=== PATIENT | male | born 1965 | race Caucasian/White ===

== ENCOUNTER 2016-10-29 09:08 | Emergency (ER) | payer OTHER ==
[~2016-10-29] VITALS: Ht 182.9 cm; Wt 102.0 kg
[~2016-10-29 09:08] MED LIST: ASPI81CH7 CHEW; CYCL1TAB29 PO; ESLI1TAB4 PO; IBUP-232 PO; MEDR4PAK PO; METO50TA PO
[2016-10-29 09:10] VITALS: BP 156/104; PULSE 71; RESP 13; TEMP 98.4; O2SAT 95
[2016-10-29] MEDS ORDERED: ONDANSETRON HCL 4 MG/2 ML VIAL IVP ONE (09:45)
[2016-10-29] MEDS ORDERED: HYDROmorphone HCL PF 2 MG/ML VIAL IVS ONE (09:45)
[2016-10-29] MEDS ORDERED: KETOROLAC TROMETHAMINE 30 MG/ML (IVP) VIAL IVP ONE (09:45)
--- NOTE | 2016-10-29 10:16 | PD ---
HPI . Sciatica Chief Complaint: Back/ Neck Pain or Injury Time Seen by Provider: 09:31 Travel History International Travel<30 days: No Contact w/Intl Traveler<30days: No Traveled to known affect area: No History of Present Illness HPI Patient presents with a chief complaint of sciatica. He had the acute onset of symptoms on 10/24 following a coughing spell. This pain radiates to the left leg. He was seen at [facility] and was treated in the emergency Department there with Decadron, Percocet and Valium improvement in his symptoms. He was discharged on Motrin, Flexeril, Valium and a Medrol Dosepak. He has been taking those as directed. Despite that, his symptoms are getting worse rather than better. He complains of left leg weakness, numbness and pain. Pain is exacerbated by movement. He states that he been able to get some relief with positioning with pillows but he is no longer able to get relief with this. He states that his symptoms are "really bad." He describes the pain as sharp and shooting. PFSH Past Medical History Atrial Fibrillation: Yes (atrial flutter per pt) Heart Rhythm Problems: Yes (ARRYTHMIAS) Cardiovascular Problems: No (aflutter) Cerebrovascular Accident: No (epilepsy) Diminished Hearing: No GERD: Yes Migraines: Yes Seizures: Yes (epilepsy ) Tetanus Vaccination: Unknown Influenza Vaccination: No Past Surgical History Tonsillectomy: Yes Social History Alcohol Use: No Tobacco Use: Yes Substance Use: No Allergies-Medications (Allergen,Severity, Reaction): Coded Allergies: Demerol (Verified Allergy, Severe, 10/29/16) Reported Meds & Prescriptions Reported Meds & Active Scripts Active Medrol Dosepak (Methylprednisolone) 4 Mg Dspk 4 Mg PO DIRECTED Per Pharmacist direction Ibuprofen 600 Mg Tab 600 Mg PO Q8H PRN Flexeril (Cyclobenzaprine HCl) 10 Mg Tab 10 Mg PO TID Reported Aptiom (Eslicarbazepine) 800 Mg Tab 800 Mg PO DAILY Aspirin Children's (Aspirin) 81 Mg Chew 81 Mg CHEW DAILY Metoprolol Tartrate 50 Mg Tab 50 Mg PO BID Review of Systems Except as stated in HPI: all other systems reviewed are Neg General / Constitutional: No: Fever, Chills Genitourinary: No: Incontinence Musculoskeletal: Positive: Pain (back and left leg) Neurologic: Positive: Weakness, Paresthesia, No: Incontinence Physical Exam Narrative GENERAL: Awake and alert. SKIN: Warm and dry. HEAD: Atraumatic. Normocephalic. EYES: Pupils equal and round. Extraocular movements are intact. NECK: Neck is supple. CARDIOVASCULAR: Regular rate and rhythm. RESPIRATORY: No accessory muscle use. MUSCULOSKELETAL: Tender at the left SI joint. Straight leg raise on the left is positive at about 10. He is unable to hold his left leg up off the bed for more than about a second. He does have positive reflexes in his left lower extremity. I was unable to get him to relax his right leg for comparison reflexes. NEUROLOGICAL: Awake and alert. No obvious cranial nerve deficits. Motor grossly within normal limits. Normal speech. PSYCHIATRIC: Appropriate mood and affect; insight and judgment normal. Data Data Last Documented VS Vital Signs Date Time Temp Pulse Resp B/P Pulse Ox O2 Delivery O2 Flow Rate FiO2 10/29/16 09:26 15 10/29/16 09:10 98.4 71 156/104 95 Orders Mri L Spine W/O Contrast (10/29/16 09:31) Hydromorphone Pf Inj (Dilaudid Pf Inj) (10/29/16 09:45) Ketorolac Inj (Toradol Inj) (10/29/16 09:45) Ondansetron Inj (Zofran Inj) (10/29/16 09:45) MDM Medical Decision Making Medical Screen Exam Complete: Yes Emergency Medical Condition: Yes Medical Record Reviewed: Yes (patient was seen and ON 10/24. HE WAS TREATED FOR SCIATICA WITH DECADRON, PERCOCET AND VALIUM IN THE ED. HE WAS DISCHARGED ON MOTRIN, FLEXERIL AND A MEDROL DOSEPAK AND WAS INSTRUCTED TO HAVE AN OUTPATIENT MRI.) Differential Diagnosis Differential diagnosis of leg pain includes but is not limited to lumbar radiculopathy, arthritis, myalgias, DVT. Narrative Course Patient presents for evaluation of sciatica involving the left lower extremity. He reports that his symptoms have rapidly worsened over the course of about 5 days despite appropriate treatment. While awaiting MRI, his pain is being treated with Dilaudid and Toradol. He has been given prophylactic Zofran. He is already on steroids so steroids have not been ordered. MRI: 1. L2-3 there is a large annular tear with a large extruded disc extending inferiorly and centrally resulting in moderate thecal sac stenosis. 2. At L3-4 there is a 13 mm extruded disc fragment in the left lateral recess resulting in severe left lateral recess stenosis. 3. At L3-4 there is also an additional 8 mm diameter disc extrusion extending inferiorly resulting in moderate to severe left lateral recess stenosis. 4. At L4-5 is a broad-based disc protrusion worse on the right side with moderate right foraminal stenosis. 5. At L5-S1 is a broad-based disc protrusion, worse on the right side with mild right foraminal stenosis. This patient will be referred to neurosurgery. Diagnosis Primary Impression: Sciatica of left side Referrals: Joel Tolliver MD Call today for an appointment as soon as possible. Explained to the unit receptionist that she had been seen here. Patient Instructions: Degenerative Disc Disease (DC), General Instructions, Narcotic given in the ED Med/Other Pt SpecificInfo: Prescription(s) given Scripts Oxycodone-Acetaminophen (Percocet)5-325 mg Tab1 Tab PO Q4H PRN (PAIN) #12 TAB Ref 0 Prov:Elle Nielsen MD 10/29/16 Prednisone 20 Mg Tab60 Mg PO DAILY 5 Days Ref 0 Prov:Elle Nielsen MD 10/29/16 Disposition: 01 DISCHARGE HOME Condition: Stable Elle Nielsen MD Oct 29, 2016 10:16
--- NOTE | 2016-10-29 11:47 | RADRPT ---
EXAM DATE/TIME: 10/29/2016 11:02 [facility] COMPARISON: No previous studies available for comparison. INDICATIONS : Lower back pain radiating down left leg. MEDICAL HISTORY : Gastroesophageal reflux disease. Osteoarthritis. Epilepsy SURGICAL HISTORY : Tonsillectomy. Inguinal hernia repair. Rt rotator cuff, lt hand ENCOUNTER: Initial ACUITY: 4-6 days PAIN SCORE: 6/10 LOCATION: Left leg TECHNIQUE: Multiplanar multisequence MRI of the lumbar spine was performed without contrast. FINDINGS: No significant abnormality present at [id number]. L2-3 there is a large central annular tear with a large disc protrusion and extrusion. The extruded d isc material from L2-3 extends inferiorly over a distance of about 2.3 cm in AP diameter of about 9 m m resulting in a moderate thecal sac stenosis. At L3-4 there is an extruded disc fragment on the left side measuring up to 13 mm in diameter severel y effacing the left lateral recess and left neural foramen. There is also a disc extrusion below the L3-4 level extending inferiorly measuring about 8 mm in diameter left paracentral region also contrib uting to severe left lateral recess stenosis. At L4-L5 is a broad-based disc protrusion, worse on the right side with mild to moderate right forami nal stenosis. At L5-S1 there is also a mild broad-based disc protrusion also worse on the right side with mild righ t-sided foraminal stenosis. CONCLUSION: 1. L2-3 there is a large annular tear with a large extruded disc extending inferiorly and centrally r esulting in moderate thecal sac stenosis. 2. At L3-4 there is a 13 mm extruded disc fragment in the left lateral recess resulting in severe lef t lateral recess stenosis. 3. At L3-4 there is also an additional 8 mm diameter disc extrusion extending inferiorly resulting in moderate to severe left lateral recess stenosis. 4. At L4-5 is a broad-based disc protrusion worse on the right side with moderate right foraminal jane nosis. 5. At L5-S1 is a broad-based disc protrusion, worse on the right side with mild right foraminal steno sis. Abbe Vences MD on October 29, 2016 at 11:36 Board Certified Radiologist. This report was verified electronically.
[2016-10-29] MEDS ORDERED: PRED20 PO (12:01)
[2016-10-29] MEDS ORDERED: PERC5TAB12 PO (12:01)
[2016-10-29 12:06] VITALS: BP 145/86
== END 2016-10-29 12:17 | disposition home or self-care (01) ==
LOC: NEPD 09:08
DX: M54.42 Lumbago with sciatica, left side (principal); R53.1 Weakness; R20.0 Anesthesia of skin; M48.07 Spinal stenosis, lumbosacral region; I48.91 Unspecified atrial fibrillation; G40.909 Epilepsy, unspecified, not intractable, without status epilepticus; Z72.0 Tobacco use
CPT/HCPCS: 72148; 96374; 96375; 99285; J1170; J1885; J2405

== ENCOUNTER → 2016-12-01 | Day surgery (SDC) | payer OTHER ==
[~2016-12-01] VITALS: Ht 182.9 cm; Wt 102.1 kg
[~2016-12-01] MED LIST changes: +*RESP: ALBUTEROL 2.5 MG/3 ML NEB (PRN) PERIprocedural Use ONLY NEB ONE; +*morphine SULFATE 8 MG/ML PERIprocedure ONLY ONE; +ACETAMINOPHEN 1000 MG/100 ML VIAL IV ONE; +ARTIFICIAL TEARS OPTH OINT 3.5 APPLIC/3.5 GM TUBO ONE; -ASPI81CH7 CHEW; +ASPI81TA11 PO; +BUPIVACAINE HCL PF 0.5% 30 ML VIAL ONE; +CHLORHEXIDINE GLUCONATE 2 % 1 PACK (2 CLOTHS) TOPICAL PRN; +DO NOT ADM ANY ANTICOAGULANT DRUGS PRN; +FAMOTIDINE 20 MG/2 ML VIAL ONE; +GELFOAM SIZE 100 ONE; +GENTAMICIN SULFATE 80 MG/2 ML VIAL ONE; +INSULIN HUMAN REGULAR 1,000 UNITS/10 ML VIAL SQ PRN; +LACTATED RINGER'S 1000 ML INJ 1,000 ML IV ONE; +LACTATED RINGER'S 1000 ML IV PRN; -MEDR4PAK PO; +METOPROLOL TARTRATE 25 MG TAB PO PRN; +MIDAZOLAM HCL 2 MG/2 ML VIAL ONE; +NEOSTIGMINE 3 MG/3 ML SYR IV ONE; +OMEP40CA2 PO; +ONDANSETRON HCL 4 MG/2 ML VIAL IV PUSH ONE; +PERC5TAB12 PO; +POVIDONE IODINE 5% (ANTISEPSIS KIT) 4 APPLICATIONS EACH NARE PRN; +PROPOFOL 200 MG/20 ML AMP IV ONE; +SODIUM CHLOR 0.9% 1000 ML INJ 1,000 ML IV SCH; +SODIUM CHLORID 0.9% 500 ML IV PRN; +THROMBIN (TOPICAL) 5,000 UNIT VIAL ONE; +VANCOMYCIN HCL 1000 MG ON-CALL/NS 250 ML IV SCH; +ceFAZolin 2 GM PREMIX 50 ML ONE; +diphenhydrAMINE HCL 50 MG/ML VIAL ONE; +ePHEDrine/NS 25 MG/5 ML SYR IV ONE; +fentaNYL CITRATE 250 MCG/5 ML AMP ONE; +methylPREDNISolone ACETATE 40 MG/ML VIAL ONE; +oxyCODONE/ACETAMINOPHEN 10 MG/325 MG TAB PO PRN
[2016-12-01 07:34] VITALS: BP 139/90; PULSE 71; RESP 20; TEMP 98; O2SAT 96
--- NOTE | 2016-12-01 11:46 | PD.OP ---
Operative Report Date of Surgery: Dec 01, 2016 Preoperative Diagnosis: Lumbar disk herniation Postoperative Diagnosis: Lumbar disk herniation Procedure: L2-L3, L3-L4 left hemilaminectomy and microdiscectomy Anesthesia: general Surgeon: Joel Tolliver Senior Net Engineer(s): Bobbi See Operation and Findings: INDICATIONS FOR THE SURGICAL PROCEDURE The patient is a 51 year-old male who presented with intractable back pain and clinical evidence of left L3 and L4 lower extremity radiculopathy. He was found to have a disk herniation/extrusion significant stenosis with significant mass effect on the neural structures which correlated with the clinical symptoms. The patient has failed maximum nonsurgical management including multiple modalities of conservative treatment as well as pain management interventions by an interventional pain specialist. A surgical decompression were indicated as a last resort. The [id number]-syut details of the procedure, indications, alternatives, risks and potential complications were fully discussed with the patient. The patient fully understood. All the questions were answered. No guarantees were given. The patient voiced requesting the procedure and signed informed consents. The patient was offered the alternative of delaying the procedure and continuing with nonsurgical management. DETAILS OF THE SURGICAL PROCEDURE After the induction of general anesthesia, endotracheal intubation was performed. A Ha catheter, bilateral CURTIS hose and sequential compression devices were placed and kept throughout the procedure. The patient was positioned prone on a Brian table over a Wellington frame. All pressure points were carefully padded with eggcrate mattress. The eyes were tapped shut after ointment was applied by the anesthesiologist to prevent corneal abrasion. A Beverly hugger was placed over the exposed lower body to maintain control of the core body temperature. The lower lumbar region was prepped and draped in the usual sterile fashion. A spinal needle was placed for localization and an x- ray performed with a C-arm. A skin incision was made in the midline over the spinous processes L2-L4 with a #10 blade. Small subcutaneous bleeders were controlled with a bipolar and the dissection was carried out through the lumbar fascia exposing the spinous processes. A subperiosteal dissection was performed with a Patton elevator and a Bovie over the L2, L3, L4 spinous process lamina and facets. A microdiscectomy self-retaining retractor was placed on the incision and an x-ray was obtained with an instrument placed underneath the lamina of L2. At this point in the procedure the operating microscope was draped in the usual sterile fashion and brought to the field. The rest of the surgical procedure was performed using microsurgical dissection technique with exception of the closure. Once the level was confirmed, a left decompressive laminectomy was performed at L2-3, and L3-L4 using the TPS drill with an AM-8 drill bit. A medial facetectomy was performed and the superior free border of the ligamentum flavum was dissected with a ligament dissector and removed with a thin footplate 2 mm Kerrison The medial facetectomy allowed me to expose the L3 and L4 nerve roots, which were identified and followed towards its exit in the foramen. Epidural veins located laterally to the dural sac were coagulated with a bipolar and incised with microscissors. Gentle medial retraction of the dural sac allowed inspection of the disc space. The patient had a disc herniation and extrtusion, causing mass effect over the neural structures The annulus fibrosus of the disc was coagulated with the bipolar and incised with an 11 blade. The extruded disc was carefully dissected from the surrounding tissue and removed with pituitary forceps. Then, a microdiscectomy was carried out in the standard fashion using straight and up-biting pituitary forceps. A good decompression of the dural sac and nerve root was achieved. The exit of the nerve root was inspected for residual disc fragments. Hemostasis was secured with the bipolar. The incision was irrigated with a large amount of saline solution. A Valsalva maneuver failed to show any cerebrospinal fluid leak or bleeding. The decompression was assessed again and found to be satisfactory. The incision was then closed in layers. The fascia was closed with 0 Vicryl sutures in an interrupted fashion. The superficial fascia was closed with 0 Vicryl sutures. The fascia was infiltrated with 0.5% Marcaine with epinephrine 1:100,000 dilution. The subcutaneous tissue was irrigated then closed with 0 Vicryl and 3 -0 Vicryl. The skin was closed with 4-0 running subcuticular Vicryl. Dermabond was applied to the skin. A sterile dressing was applied. At the end of the procedure, the sponge, needle and instrument counts were all correct. Estimated blood loss was less than 60 cc. No blood transfusion was given. No intraoperative complications occurred. The patient received prophylactic antibiotics. The patient was then extubated and transferred to the recovery room in stable condition. Joel Tolliver MD Dec 01, 2016 11:46
[2016-12-01 14:37] VITALS: BP 155/92; PULSE 88; RESP 18; TEMP 97.6; O2SAT 93
--- NOTE | 2016-12-01 17:10 | RADRPT ---
EXAM DATE/TIME: 12/01/2016 09:03 [facility] COMPARISON: No previous studies available for comparison. INDICATIONS : Level Localization for L2,L3 and L3,L4 laminectomy. MEDICAL HISTORY: Gastroesophageal reflux disease. Osteoarthritis. Epilepsy SURGICAL HISTORY : Tonsillectomy. Inguinal hernia repair. Rt rotator cuff, lt hand ENCOUNTER: Initial ACUITY: 1 day PAIN SCORE: Non-responsive. LOCATION: Lumbar spine. FINDINGS: Surgical instruments are noted posteriorly at the L2-3 level. CONCLUSION: Surgical instruments are noted posteriorly at the L2-3 level. Miko Sterling MD on December 01, 2016 at 17:01 Board Certified Radiologist. This report was verified electronically.
== END | disposition home or self-care (01) ==
LOC: HSDC 06:45
PROVIDERS: ATTEND Neurological Surgery
DX: M51.26 Other intervertebral disc displacement, lumbar region (principal); I48.91 Unspecified atrial fibrillation; K21.9 Gastro-esophageal reflux disease without esophagitis; G43.709 Chronic migraine without aura, not intractable, without status migrainosus; G40.209 Localization-related (focal) (partial) symptomatic epilepsy and epileptic syndromes with complex partial seizures, not intractable, without status epilepticus
CPT/HCPCS: 00630; 63030; 63035; 72020; 76000; 94664; J0131; J0690; J1030; J1200; J1580; J2250; J2270; J2405; J2710; J3010; J3370; J7050; J7120; J7613; L0627

== ENCOUNTER 2017-04-19 14:47 | Day surgery (SDC) | payer OTHER ==
[~2017-04-19] VITALS: Ht 185.4 cm; Wt 105.3 kg
[~2017-04-19 14:47] MED LIST changes: -*RESP: ALBUTEROL 2.5 MG/3 ML NEB (PRN) PERIprocedural Use ONLY NEB ONE; -*morphine SULFATE 8 MG/ML PERIprocedure ONLY ONE; -ACETAMINOPHEN 1000 MG/100 ML VIAL IV ONE; -ARTIFICIAL TEARS OPTH OINT 3.5 APPLIC/3.5 GM TUBO ONE; -ASPI81TA11 PO; -BUPIVACAINE HCL PF 0.5% 30 ML VIAL ONE; -CHLORHEXIDINE GLUCONATE 2 % 1 PACK (2 CLOTHS) TOPICAL PRN; +CYCL10TA PO; -CYCL1TAB29 PO; -DO NOT ADM ANY ANTICOAGULANT DRUGS PRN; -FAMOTIDINE 20 MG/2 ML VIAL ONE; -GELFOAM SIZE 100 ONE; -GENTAMICIN SULFATE 80 MG/2 ML VIAL ONE; -INSULIN HUMAN REGULAR 1,000 UNITS/10 ML VIAL SQ PRN; -LACTATED RINGER'S 1000 ML INJ 1,000 ML IV ONE; -LACTATED RINGER'S 1000 ML IV PRN; -METOPROLOL TARTRATE 25 MG TAB PO PRN; -MIDAZOLAM HCL 2 MG/2 ML VIAL ONE; -NEOSTIGMINE 3 MG/3 ML SYR IV ONE; -ONDANSETRON HCL 4 MG/2 ML VIAL IV PUSH ONE; -POVIDONE IODINE 5% (ANTISEPSIS KIT) 4 APPLICATIONS EACH NARE PRN; -PROPOFOL 200 MG/20 ML AMP IV ONE; -SODIUM CHLOR 0.9% 1000 ML INJ 1,000 ML IV SCH; -SODIUM CHLORID 0.9% 500 ML IV PRN; -THROMBIN (TOPICAL) 5,000 UNIT VIAL ONE; -VANCOMYCIN HCL 1000 MG ON-CALL/NS 250 ML IV SCH; -ceFAZolin 2 GM PREMIX 50 ML ONE; -diphenhydrAMINE HCL 50 MG/ML VIAL ONE; -ePHEDrine/NS 25 MG/5 ML SYR IV ONE; -fentaNYL CITRATE 250 MCG/5 ML AMP ONE; -methylPREDNISolone ACETATE 40 MG/ML VIAL ONE; -oxyCODONE/ACETAMINOPHEN 10 MG/325 MG TAB PO PRN
[2017-04-19] MEDS ORDERED: SODIUM CHLORID 0.9% 500 ML INJ 500 ML IV SCH (15:00)
[2017-04-19] MEDS ORDERED: CHLORHEXIDINE GLUCONATE 2 % 1 PACK (2 CLOTHS) TOPICAL PRN (15:15)
[2017-04-19] MEDS ORDERED: LORazepam 1 MG TAB SL SCH (15:15)
[2017-04-19] MEDS ORDERED: SODIUM CHLORID 0.9% 500 ML IV PRN (15:15)
[2017-04-19] MEDS ORDERED: POVIDONE IODINE 5% (ANTISEPSIS KIT) 4 APPLICATIONS EACH NARE PRN (15:15)
[2017-04-19] MEDS ORDERED: METOPROLOL TARTRATE 25 MG TAB PO PRN (15:15)
[2017-04-19] MEDS ORDERED: LACTATED RINGER'S 1000 ML IV PRN (15:15)
[2017-04-19] MEDS ORDERED: APIX5TAB PO (16:22)
[2017-04-19] MEDS ORDERED: ALEV220T14 PO (16:22)
[2017-04-19 16:23] VITALS: BP 165/99; PULSE 99; RESP 18; TEMP 98; O2SAT 97
[2017-04-19 16:42] LABS: AUTOMATED NEUTROPHIL # 4.7 TH/MM3 (1.8-7.7); BASOPHIL % 0.3 % (0.0-2.0); EOSINOPHIL # 0.3 TH/MM3 (0-0.4); EOSINOPHIL % 2.9 % (0.0-4.0); HEMATOCRIT 45.2 % (39.0-51.0); HEMO FLAGS DIFF FINAL; LYMPH % 38.3 % (9.0-44.0); LYMPHOCYTE # 3.6 TH/MM3 (1.0-4.8); MEAN CELL VOLUME 94.5 FL (80.0-100.0); MEAN CORPUSCULAR HEMOGLOBIN 32.9 PG (27.0-34.0); MEAN CORPUSCULAR HGB CONC 34.9 % (32.0-36.0); MONO % 8.5 % (0.0-8.0); PLATELET COUNT 212 TH/MM3 (150-450); RED BLOOD COUNT 4.79 MIL/MM3 (4.50-5.90); RED CELL DISTRIBUTION WIDTH 12.9 % (11.6-17.2); WHITE BLOOD COUNT 9.5 TH/MM3 (4.0-11.0)
[2017-04-19 16:53] LABS: PROTHROMBIN TIME - PATIENT 10.3 SEC (9.8-11.6)
[2017-04-19 17:08] LABS: BICARBONATE 26.2 MEQ/L (21.0-32.0)
[2017-04-19 17:09] LABS: POTASSIUM 3.7 MEQ/L (3.5-5.1)
[2017-04-19] MEDS ORDERED: HEPARIN-NS/PF INJ 500 ML ONE (17:44)
[2017-04-19] MEDS ORDERED: PROTAMINE SULFATE 50 MG/5 ML VIAL ONE (17:47)
[2017-04-19] MEDS ORDERED: HEPARIN-D5W 25,000 U/250 ML 250 ML ONE (17:47)
[2017-04-19] MEDS ORDERED: HEPARIN SODIUM - IV 10,000 UNITS/10 ML VIAL ONE (17:47)
[2017-04-19] MEDS ORDERED: ISOPROTERENOL HCL 1 MG/5 ML AMP ONE (17:47)
[2017-04-19] MEDS ORDERED: LEVOFLOXACIN 500 MG PREMIX INJ 100 ML IV ONE (17:57)
[2017-04-19] MEDS ORDERED: HEPARIN-NS/PF INJ 2,000 ML ONE (17:57)
[2017-04-19] MEDS ORDERED: LIDOCAINE HCL 2% 100 MG/5 ML SYRINGE ONE (20:28)
[2017-04-19] MEDS ORDERED: LORazepam 2 MG/ML VIAL IV PUSH PRN (20:30)
[2017-04-19] MEDS ORDERED: oxyCODONE/ACETAMINOPHEN 5 MG/325 MG TAB PO PRN ×2 (20:30)
[2017-04-19] MEDS ORDERED: ATROPINE SULFATE 1 MG/ML VIAL IV PUSH PRN (20:30)
[2017-04-19] MEDS ORDERED: ONDANSETRON HCL 4 MG/2 ML VIAL IV PUSH PRN (20:30)
[2017-04-19] MEDS ORDERED: SODIUM CHLOR 0.9% 250 ML INJ 250 ML IV PRN (20:30)
[2017-04-19] MEDS ORDERED: BACITRACIN OINT 0.9 GM PKT TOP ONE (20:30)
[2017-04-19] MEDS ORDERED: LIDOCAINE HCL 1% 50 ML VIAL INFIL PRN (20:30)
--- NOTE | 2017-04-19 20:31 | CATHPROC ---
GT Channel HIS Report Study Information Study Number Admission Scheduled Start Study Start [id number] Apr 19 2017 2:47PM 04/19/2017 Apr 19 2017 5:22PM [place] Service Electrophysiology Study Admit Source Facility Department Other [facility] - Wellness Coach Physician and Clinical Staff Initial Kaitlin Montelongo Fancy Stitcher Jaylyn Cooper,RT(R) TECH2 Other Anesthesia, SILK WASHING MACHINE OPERATOR Recorder Shivani Bullock,RN Recorder Suzanna Blanco,BSRN Scrub Amish Finch,RT(R) Procedures Performed Procedure Location (Site) Vessel Name ICE CATHETER INSERT RA Atruim RF Ablation LT. ATRIUM LT. ATRIUM Equipment Time Flare Maker Description Size Mfg Part Number Used/Scraped NEEDLE, TRANSSEPTAL NRG 98 17:31 [id number] Used C1 [employer]/ EP 17:31 KIT, TRANSDUCER / AFIB [id number] Used PACER [id number] CATHETER, TACTICATH ABLAT BUNDLE 17:31 BUN[facility]LE-[facility] Used 65 BUNDLE *[id number]- BUNDLE [id number] CATHETER, FR7 OPTIMA SPIRAL 17:31 BUNDLE-[facility] FR7 *[id number]- Used BUNDLE BUNDLE [id number] 19:18 BUND[facility] CATHETER, JSN, QUAD BUNDLE FR 5 *[id number]- Used BUNDLE [id number] 19:18 BUNDLE-[facility] CATHETER, JSN, QUAD BUNDLE FR 5 *[id number]- Used BUNDLE [id number] 17:31 BUNDLE-[facility] [facility] CATHETER, JSN, QUAD BUNDLE FR 5 *[id number]- Used BUNDLE [id number] 17:31 BUNDLE-[facility] CATHETER, JSN, QUAD BUNDLE FR 5 *[id number]- Used BUNDLE [id number] SET, COOL POINT TUBING 17:31 BUNDLE-[facility] *[id number]- Used BUNDLE BUNDLE SHEATH, FR8.5 STEERABLE SM 17:31 BUNDLE-[facility] 71CM [id number] Used 71CM BUNDLE COVER, TRANSDUCER CABLE 17:31 Clean Membranes [id number] Used ACUNAV 17:31 CORDIS/PACER SHEATH, FR10 KRISTA 11CM FR 10 [id number] Used 17:31 CORDIS/PACER SHEATH, FR9 KRISTA 11CM FR 9 [id number] Used [id number] 17:31 MEDLINE IND[employer]ES PACK, CCL CUSTOM * Used *[id number] 17:31 MEDLINE PACER POWERS, LIMB * 2530 *[id number] Used [id number] 17:31 [facility] MEDICAL SHEATH, FR4.5 PRELUDE 11CM FR 4.5 Used [id number] 17:31 NAMIC TUBING, HIGH PRESSURE 48" 48" Used *[id number] 17:31 NAMIC TUBING, HIGH PRESSURE 48" 48" Used *[id number] 17:31 [facility] BLANKET,WARM AIR CCL * Used *[id number] 17:31 [facility] MEDICAL ELECTRODE KIT, DMITRY X SURFACE * Used *[id number] 17:31 [facility] MEDICAL SHEATH, EPS, FR6 FAST CATH FR 6 Used *[id number] 17:31 [facility] MEDICAL SHEATH, EPS, FR7 FAST CATH FR 7 [id number] Used [id number] 17:31 [facility] MEDICAL SHEATH, EPS, FR8 FAST CATH FR 8 Used *[id number] CATHETER, ACUNAV FR10 ICE [id number] 19:03 ARIEL FR 10 Used (ARIEL) *[id number] [facility] PAD, ELECTROSURGICAL 17:31 * [id number] *[id number] Used SURGICAL GROUNDING (BLUE) History: Current Medications Medication Dosage/Unit Route Frequency Last Date/Time Taken Beta Pravin ELIQUIS History: Allergies Allergy Reaction Demerol PASSED OUT meperidine PASSED OUT ergotamine Nausea/Vomiting History: Risk Factors Hypertension Yes Chronic Lung Disease Labs Hgb (g/dl) Hct (%) RBC (MIL/MM3) WBC (l/cumm) Platelets (thousands) 11.60-17.00 35.00-51.00 4.00-5.90 4.00-11.00 150.00-450.00 15.0 45 4.7 9.5 212 Glucose (mg/dl) BUN (mg/dl) Creatinine (mg/dl) BUN:Creatinine (1:x) 74.00-106.00 7.00-18.00 0.50-1.30 10.00-20.00 89 12 0.7 17.1 Na (meq/l) K (meq/l) 136.00-145.00 3.50-5.10 140 3.7 INR (PTT:PT) 0.90-1.10 1 Medication Medication Total Dose (Bolus/Oral) Medication Total Dosage/Unit 1% XYLOCAINE 40 mL HEPARIN 96857 units PROTAMINE 40 mg Medications (Bolus/Oral) Medication Time Given Dosage/Unit Administered By Reason 1% XYLOCAINE 04/19/2017 6:49:09 PM 20 mL Kaitlin Hills As per physicians ve rbal order 20 mL 1% XYLOCAINE given in lab by Kaitlin Hills in Left Groin via Subcutaneous. Ordered by Alok Hills. Reason: As per physicians verbal order. 1% XYLOCAINE 04/19/2017 6:51:04 PM 20 mL Kaitlin Hills As per physicians ve rbal order 20 mL 1% XYLOCAINE given in lab by Kaitlin Hills in Right Groin via Subcutaneous. Ordered by Ramsey Hills. Reason: As per physicians verbal order. HEPARIN 04/19/2017 6:57:50 PM 28634 units Anesthesia, SILK WASHING MACHINE OPERATOR As per physicians verbal order 08562 units HEPARIN given in lab by Anesthesia, SILK WASHING MACHINE OPERATOR via Peripheral IV. Ordered by Kaitlin Hills. Taylor son: As per physicians verbal order. HEPARIN 04/19/2017 7:13:32 PM 2000 units Anesthesia, SILK WASHING MACHINE OPERATOR As per physicians verbal order 2000 units HEPARIN given in lab by Anesthesia, SILK WASHING MACHINE OPERATOR via Peripheral IV. Ordered by Kaitlin Hills. Reas on: As per physicians verbal order. PROTAMINE 04/19/2017 8:16:29 PM 40 mg Anesthesia, SILK WASHING MACHINE OPERATOR As per physicians ve rbal order 40 mg PROTAMINE given in lab by Anesthesia, SILK WASHING MACHINE OPERATOR. Ordered by Kaitlin Hills. Reason: As per physicians verbal order. Medication (Drip) Medication Time Given Dosage/Unit Concentration/Unit Diluent (ml) Solution HEPARIN DRIP 04/19/2017 7:13:49 PM 1000 units/hr 66442 units 250 D5W 1000 units/hr HEPARIN DRIP given in lab by Anesthesia, SILK WASHING MACHINE OPERATOR via Peripheral IV. Pump/Drip Flow = 10 ml /hr [place] [address] units in 250 ml. Ordered by Kaitlin Hills. Reason: As per physicians verbal order. ISUPREL 04/19/2017 7:56:29 PM 20 mcg/min 1 mg 250 NaCl .9 20 mcg/min ISUPREL given in lab by Anesthesia, SILK WASHING MACHINE OPERATOR via Peripheral IV. Pump/Drip Flow = 300 ml/hr usi ng NaCl .9 with a concentration of 1 mg in 250 ml. Ordered by Kaitlin Hills. Reason: As per physicians verbal order. IV Solutions 04/19/2017 5:58:10 PM 0 mL (IV) NaCl .9 IV Solutions given in lab by Suzanna Blanco BSRN in Right Antecubital via Peripheral IV. Pump/Drip Flow = 50 ml/hr using NaCl .9. Ordered by Kaitlin Hills. Reason: As per physicians verbal order. IV Solutions 04/19/2017 5:58:33 PM 0 mL (IV) NaCl .9 IV Solutions given in lab by Suzanna Blanco BSRN in Left Forearm via Peripheral IV. Pump/Drip Flow = 50 ml/hr using NaCl .9. Ordered by Kaitlin Hills. Reason: As per physicians verbal order. LEVAQUIN 04/19/2017 6:12:00 PM 100 mL/hr 500 100 NaCl .9 100 mL/hr LEVAQUIN given in lab by EL Coburn in Right Antecubital via Peripheral IV. Pump/Drip Flow = 0 ml/hr using NaCl .9 with a concentration of 500 in 100 ml. Ordered by Kaitlin Hills. Reason: As per physicians verbal order. Initial Case Assessment Cardiovascular HR NIBP Chest Pain 73 160/107 0 Edema Present Skin color Skin None Normal Warm Dry Neurological State Oriented to time-place- Alert Moves all extremities person Respiration - General Respiration Rate SpO2 (%) (B/min) 20 98 Final Case Assessment Cardiovascular HR Rhythm NIBP Chest Pain 97 sr 125/81 0 Edema Present Skin color Skin None Normal Warm Dry Circulatory - Right Pulses Dorsalis Pedis 1 Scale (0,1,2,3,4,d) Circulatory - Left Pulses Dorsalis Pedis 3 Scale (0,1,2,3,4,d) Circulatory - Lower Extremities Color Lower Right Color Lower Left Normal Normal Neurological State Oriented to time-place- Lethargic Moves all extremities person Respiration - General Respiration Rate SpO2 (%) O2 (lpm) (B/min) 18 99 6 Chronological Log Time Study Chronological Log 17:40:24 Patient arrived via Bed. 17:40:25 Patient Name, D.O.B, / Armband Verified By R.N. 17:40:25 Consent signed by the physician and the patient and verified by the Wellness Coach staff. 17:40:26 Pre-op and post- op instructions given; patient acknowledges understanding of instructions. Verbal Stimulation=2 Physical Stimulation=2 Airway=~AIRWAY~ Respiration=2 TOTAL=10. (0=absent, 1=limited, 17:57:04 2=present) 17:57:17 Anesthesia at bedside. Assumes care of patient. Micah SILK WASHING MACHINE OPERATOR 17:57:25 Presedation assessment performed by Wellness Coach RN. 17:57:27 Patient has been NPO for More than 6Hrs. 17:57:31 Skin Breakdown- none 17:57:39 Patient Warmer Placed on the Table. 17:57:42 Disposable Defibrillator Pads Placed On Patient. 17:57:44 Jewel Prominences Protected 17:57:46 A # 20 IV was noted in the Forearm (left). Grade = ~GRADE~ 17:58:00 A # 20 IV was noted in the Antecubital (right). Grade = ~GRADE~ IV Solutions given in lab by Suzanna Blanco BSRN in Right Antecubital via Peripheral IV. Pum p/Drip Flow = 50 ml/hr 17:58:10 using NaCl .9. Ordered by Kaitlin Hills. Reason: As per physicians verbal order. IV Solutions given in lab by Suzanna Blanco BSRN in Left Forearm via Peripheral IV. Pump/Dri p Flow = 50 ml/hr using 17:58:33 NaCl .9. Ordered by Kaitlin Hills. Reason: As per physicians verbal order. 17:58:55 History and physical on the chart or being dictated. Assessment: Initial Case, HR=73 BPM, HCYM=174/107 mmhg, Chest Pain=0, Edema=None, Color=Normal, Skin = Warm, Dry 17:58:57 Neurological: State=Alert, Ox3, HOWARD Respiration: Resp=20 B/min, SpO2=98 % 17:59:30 Table restraints applied according to hospital policy 17:59:33 Right groin prepped with 2% chlorhexidine, and draped after a 3 min. waiting time. 17:59:35 Left groin prepped with 2% chlorhexidine, and draped after a 3 min. waiting time. 100 mL/hr LEVAQUIN given in lab by Anesthesia, SILK WASHING MACHINE OPERATOR in Right Antecubital via Peripheral IV. Pum p/Drip Flow = 0 18:12:00 ml/hr using NaCl .9 with a concentration of 500 in 100 ml. Ordered by Kaitlin Hills. Reason : As per physicians verbal order. 18:22:51 Patient intubated by anesthesiology. 18:23:11 Indwelling uretheral catheter inserted by Krys LOONEY with clear yellow urine noted. 18:30:27 Reference ECG taken 18:32:47 MD notified ready. 18:41:57 MD arrived. 18:45:26 Immediate Presedation assesment performed by physician. Time Out. Correct patient, procedure, procedure equipment, site and side verified with physicia n present. Time 18:45:29 concurred by MD, individual staff and SILK WASHING MACHINE OPERATOR. Time Out #2 - Consents verified, patient in correct position, all results are labled and displa yed, safety precautions 18:45:31 taken, antibiotics administered. Time out concurred by MD, individual staff and SILK WASHING MACHINE OPERATOR in procedu re 18:45:34 Case Start 18:45:37 NIKOS begun at bedside. 18:48:06 Nikos completed. 20 mL 1% XYLOCAINE given in lab by Kaitlin Hills in Left Groin via Subcutaneous. Ordered by Kaitlin Rob. 18:49:09 Reason: As per physicians verbal order. 18:49:31 Vascular access was obtained in the Fem Art (left). 18:49:42 Vascular access was obtained in the Fem Vein (left). 18:49:46 Vascular access was obtained in the Fem Vein (left). 18:49:46 Vascular access was obtained in the Fem Vein (left). 18:50:08 A SHEATH, FR4.5 PRELUDE 11CM FR 4.5 was advanced into the Fem Art (left) using the Percutan eous technique. 18:50:20 A SHEATH, EPS, FR6 FAST CATH FR 6 was advanced into the Fem Art (left) using the Percutaneo us technique. 18:50:35 A SHEATH, EPS, FR7 FAST CATH FR 7 was advanced into the Fem Vein (left) using the Percutane ous technique. 18:50:44 A SHEATH, FR10 KRISTA 11CM FR 10 was advanced into the Fem Vein (left) using the Percutaneo us technique. 20 mL 1% XYLOCAINE given in lab by Kaitlin Hills in Right Groin via Subcutaneous. Ordered by Kaitlin Perry. 18:51:04 Reason: As per physicians verbal order. 18:51:14 Vascular access was obtained in the Fem Vein (right). 18:51:20 A SHEATH, EPS, FR8 FAST CATH FR 8 was advanced into the Fem Vein (right) using the Percutan eous technique. A CATHETER, JSN, QUAD BUNDLE FR 5 was advanced vis Fem Vein (left) and placed in the HIS. Place ment was 18:51:31 visually confirmed under fluoroscopy. A CATHETER, JSN, QUAD BUNDLE FR 5 was advanced vis Fem Vein (left) and placed in the CS. Placem ent was visually 18:51:48 confirmed under fluoroscopy. A CATHETER, JSN, QUAD BUNDLE FR 5 was advanced vis Fem Vein (left) and placed in the HRA. Place ment was 18:52:00 visually confirmed under fluoroscopy. A CATHETER, JSN, QUAD BUNDLE FR 5 was advanced vis Fem Vein (left) and placed in the RVA. Place ment was 18:52:35 visually confirmed under fluoroscopy. 18:55:19 MM taking over recording 18:55:41 CATHETER, ACUNAV FR10 ICE (tydy) FR 10 Was Postioned. A SHEATH, FR8.5 STEERABLE SM 71CM BUNDLE 71CM was exchanged in the Fem Vein (right). This was n ecessary in 18:56:06 order for catheter support. 18:57:00 [place] in 18:57:45 A eps was advanced to the right atrium and passed through the septal wall to the left [place]riu [place]. 66981 units HEPARIN given in lab by Anesthesia, SILK WASHING MACHINE OPERATOR via Peripheral IV. Ordered by Macario Hills Reason: As per 18:57:50 physicians verbal order. 18:58:00 [place] out A CATHETER, FR7 OPTIMA SPIRAL BUNDLE FR7 was advanced vis Fem Vein (right) and placed in the LA . Placement 18:58:33 was visually confirmed under fluoroscopy. Mapping in progress. 19:05:00 Activated Clotting Time Drawn 19:11:19 Mapping complete. Catheter was removed A CATHETER, TACTICATH ABLAT 65 BUNDLE was advanced vis Fem Vein (right) and placed in the LA. P lacement was 19:11:32 visually confirmed under fluoroscopy. 19:11:39 RF Ablation of the LT. ATRIUM with a CATHETER, TACTICATH ABLAT 65 BUNDLE. 19:13:08 ACT (Normal Range 90-180) = 326 2000 units HEPARIN given in lab by Anesthesia, SILK WASHING MACHINE OPERATOR via Peripheral IV. Ordered by Kaitlin Hills . Reason: As per 19:13:32 physicians verbal order. 1000 units/hr HEPARIN DRIP given in lab by Anesthesia, SILK WASHING MACHINE OPERATOR via Peripheral IV. Pump/Drip Flow = 10 ml/hr using 19:13:49 [place] [address] units in 250 ml. Ordered by Kaitlin Hills. Reason: As per phy sicians verbal order. 19:20:00 Activated Clotting Time Drawn 19::32 ACT (Normal Range 90-180) = 353 19:53:10 Ablation complete. Catheter was removed A CATHETER, FR7 OPTIMA SPIRAL BUNDLE FR7 was advanced vis Fem Vein (right) and placed in the LA . Placement 19:53:19 was visually confirmed under fluoroscopy. 20 mcg/min ISUPREL given in lab by Anesthesia, SILK WASHING MACHINE OPERATOR via Peripheral IV. Pump/Drip Flow = 300 ml/ hr using NaCl .9 19:56:29 with a concentration of 1 mg in 250 ml. Ordered by Kaitlin Hills. Reason: As per physicians kash bal order. 20:09:46 Isuprel off 20:13:09 Catheter(s) removed without difficulty 20:13:18 Heparin off 40 mg PROTAMINE given in lab by Anesthesia, SILK WASHING MACHINE OPERATOR. Ordered by Kaitlin Hills. Reason: As per phy sicians verbal 20:16:29 order. 20:27:02 Sheath(s) left in place, secured, 0.9ns kvo connected and will be removed in Holding Area 20:27:23 Activated Clotting Time Drawn Assessment: Final Case, HR=97 BPM, Rhythm=sr, NPHA=998/81 mmhg, Chest Pain=0, Edema=None, [place] r=Normal, Skin = Warm, Dry Right Pulses: Luis Ped=1 Left Pulses: Luis Ped=3 20:28:18 Lower Right Extremities: Color=Normal Lower Left Extremities: Color=Normal Neurological: State=Lethargic, Ox3, HOWARD Respiration: Resp=18 B/min, SpO2=99 %, O2=6 lpm 20:29:00 Case End :29:02 No case complications noted. ::02 Cine recording checked. 20:29:20 PACU called. Spoke to Salas 20:29:43 Bedside Report will be given. 20:29:52 Defibrillator and ground pads removed. Skin intact. 20:38:54 Patient moved to stretcher End Study - Maximum Contrast Load Max Contrast Load (mL) 753.6 End Study - Radiation Exposure Fluoro Time (minutes) 0.8 End Study - Patient Disposition Complications Transferred To Interventional Outcome No Telemetry Bed successful
[2017-04-19] MEDS ORDERED: DO NOT ADM ANY ANTICOAGULANT DRUGS PRN (20:44)
[2017-04-19 21:45] VITALS: BP 142/94; PULSE 75; RESP 16; TEMP 97.6; O2SAT 96
[2017-04-19 22:00] VITALS: PULSE 81
[2017-04-19] MEDS: METOPROLOL TARTRATE 50 MG TAB PO SCH (22:23)
[2017-04-19] MEDS: NAPROXEN 250 MG TAB PO SCH (22:23)
[2017-04-19 23:00] VITALS: BP 140/91; PULSE 82; PULSE 88; RESP 16; TEMP 97.9; O2SAT 97
[2017-04-20] VITALS (12 sets, daily range): BP systolic 123–137; BP diastolic 84–90; PULSE 69–82; RESP 16–18; TEMP 97.7–99.9; O2SAT 97
[2017-04-20 06:54] LABS: APTT (PATIENT) 28.1 SEC (24.3-30.1); INTERNATIONAL NORMALIZED RATIO 1.1 RATIO
[2017-04-20] MEDS ORDERED: APTIOM 800 MG PO SCH (09:00)
[2017-04-20] MEDS ORDERED: APIXABAN 5 MG TABLET PO SCH (09:00)
[2017-04-20] MEDS ORDERED: PANTOPRAZOLE SOD 40 MG DELAYED RELEASE TAB PO SCH (09:00)
[2017-04-20] MEDS: NAPROXEN 250 MG TAB PO SCH (09:00)
[2017-04-20] MEDS: METOPROLOL TARTRATE 50 MG TAB PO SCH (09:03)
--- NOTE | 2017-04-20 11:40 | PD.CARD ---
Atrial Fibrillation Ablation PROCEDURE DATE: Apr 19, 2017 PROCEDURES PERFORMED: 1. Electrophysiology study on Isuprel infusion 2. CS cannulation 3. 3-D mapping 4. Transseptal approach 5. Right and left heart catheterization 6. Intracardiac echo 7. Radiofrequency ablation of atrial fibrillation 8. Pulmonary vein isolation 9. Posterior wall ablation 10. Mitral line creation 11. Anterior wall ablation INDICATIONS FOR THE PROCEDURE Mr. Torres is a 51-year-old male with atrial fibrillation, very symptomatic admits for electrophysiology study and ablation. The risks, the nature and the benefits of the procedure were clearly stated to him. The risks include pneumothorax, cardiac perforation, stroke, need for open heart surgery and even . The patient understood and agreed to proceed. DESCRIPTION OF THE PROCEDURE IN DETAIL As written informed consent was obtained prior to esophageal echocardiogram, the patient was kept on the table where he was prepped and draped in the usual sterile fashion. Conscious sedation was initiated and maintained throughout the procedure by the anesthesiologist. Once sedation was verified, the right and left inguinal areas were anesthetized with 2% Xylocaine. Using modified Seldinger technique, the left femoral vein was cannulated on three occasions, three guidewires were advanced. Over the wire a 6, 7 and a 10-Barbadian Hemaquet were advanced. Then the left femoral artery was cannulated on one occasion, one guidewire was advanced. Over the wire a 4-Barbadian Hemaquet was advanced. Then the right femoral vein was cannulated on one occasion, one guidewire was advanced. Over the wire a 8-Barbadian Hemaquet was advanced. Then under fluoroscopic guidance through the 6 and 7-Barbadian Hemaquet, two 5-Barbadian Evelin curved quadripolar electrophysiology catheters were advanced and placed around the His as well as coronary sinus. Basic interval was measured. The patient was in sinus rhythm. Through the 10-Barbadian Hemaquet, a Cordis Segundo AcuNav intracardiac echo catheter was advanced and placed at the right atrium. Multiple view was obtained. There was no pericardial effusion, pulmonary vein was seen, atrial septal was visualized. Then the 8-Barbadian Hemaquet in the right femoral vein was exchanged for Agilis transseptal sheath that was placed all the way to the superior vena cava. Through the sheath a Jada needle was advanced, then the sheath, the dilator and the needle were progressed until foci engaged. Once engaged, the needle was advanced. RF was delivered for 2 seconds. I was able to cross into the left atrium. Once the needle crossed, the dilator was advanced. Once the dilator crossed, the sheath was advanced. Once the sheath crossed, the dilator and the needle were removed. At this point I did flood the system and fluid movement was seen in the left atrium the indicates the sheath is in good position. The patient already received 10,000 units of heparin. The goal is to keep an ACT around 350 during ablation. Then through the sheath a [place] 20 pulse circumferential catheter was advanced. Using [employer] endocardial solution mapping system, a two-dimensional configuration of the left atrium was obtained. Points were taken at the left superior and inferior veins, right superior and inferior veins, mitral valve, and appendages. Then through the sheath a [place]. Philipp TactiCath 65cm 3.5mm irrigated tipped mapping and radiofrequency ablation catheter was advanced. Esophageal probe was placed temperature monitoring during ablation. When it increased to 0.5 degrees Celsius above baseline, I moved to a different area of the atrium. First I did isolate the left superior and inferior vein. I did make a [place] around the veins. Posterior was ablated. A mitral line was created. Then the right superior and inferior veins were isolated. I did remap the atrium. At that point I did advance the circumferential catheter again into the vein. There was no signal into the vein, pacing from the vein showed no conduction to the atrium. Isuprel infusion was initiated at 20 mcg for over 10 minutes. No tachyarrhythmia was induced, post Isuprel no tachyarrhythmia was induced. At that point the procedure was complete. All catheters were removed , atrial septal sheath was exchanged for 9-Barbadian Hemaquet, intracardiac echo showed no pericardial effusion. There is still good flow in the pulmonary vein. The patient is going to be transferred to the recovery room. No incident report. The patient tolerated the procedure. Blood loss was minimal. FINDINGS 1. Electrocardiogram: At baseline the patient was in sinus post procedure electrocardiogram was unchanged. 2. Basic interval: Base cycle length was around 790. AH at 96 and HV at 48 milliseconds. 3. Tachyarrhythmia: Atrial fibrillation was mapped and ablated. The ablation was successful. CONCLUSION Successful electrophysiology study, mapping, radiofrequency ablation of atrial fibrillation, pulmonary vein isolation, posterior ablation, mitral line creation. COMMENTS AND RECOMMENDATIONS The patient is going to be transferred to the telemetry unit. Will be observed and when stable can be discharged home. Kaitlin Hills MD Apr 20, 2017 11:39
--- NOTE | 2017-04-20 11:43 | HHI.PR ---
Subjective Remarks Feeling fine Objective Vital Signs Date Time Temp Pulse Resp B/P (MAP) Pulse Ox O2 Delivery O2 Flow Rate FiO2 04/20/17 08:00 97.7 75 18 123/90 (101) 97 04/20/17 06:00 70 04/20/17 05:00 75 04/20/17 04:49 99.9 04/20/17 04:00 78 04/20/17 03:00 98.0 82 16 137/84 (101) 97 04/20/17 03:00 75 04/20/17 02:00 72 04/20/17 01:00 69 04/20/17 00:00 80 04/19/17 23:00 82 04/19/17 23:00 97.9 88 16 140/91 (107) 97 04/19/17 22:00 81 04/19/17 21:45 75 04/19/17 21:45 97.6 75 16 142/94 (110) 96 04/19/17 21:30 74 15 138/87 (104) 97 Simple Mask 10 04/19/17 21:10 79 20 133/82 (99) 96 Simple Mask 10 04/19/17 20:50 79 18 160/77 (104) 97 Simple Mask 10 04/19/17 20:45 82 17 133/87 (102) 98 Simple Mask 10 04/19/17 20:44 97.7 82 17 132/80 (97) 98 Simple Mask 10 04/19/17 16:23 98.0 99 18 165/99 (121) 97 I/O 04/19/17 04/19/17 04/19/17 04/20/17 04/20/17 04/20/17 07:00 15:00 23:00 07:00 15:00 23:00 Intake Total 980 ml Output Total 700 ml Balance 280 ml Intake Oral 980 ml Output Urine Total 700 ml # Bowel Movements 0 Result Diagram: 04/19/17 1538 04/19/17 1538 Imaging Alert, fully oriented Lungs: ventilated Heart: s1, S2 regular, no gallop Abdomen: soft, no mass Ext: no edema Current Medications Medications (Trade) Dose Ordered Sig/Linda Route Start Time Stop Time Status Last Admin Lactated Ringer's 1,000 ml @ 30 mls/hr Q24H PRN IV 04/19/17 15:15 04/22/17 15:14 Sodium Chloride 500 ml @ 30 mls/hr [id number] PRN IV 04/19/17 15:15 04/22/17 15:14 (Lopressor) 25 mg PINKED EDGE SEWING MACHINE OPERATOR PRN PO 04/19/17 15:15 04/22/17 15:14 (Betadine 5% Antisepsis Kit) 1 applic PINKED EDGE SEWING MACHINE OPERATOR PRN EACH NARE 04/19/17 15:15 04/22/17 15:14 (Chlorhexidine 2% Cloth) 3 pack PINKED EDGE SEWING MACHINE OPERATOR PRN TOPICAL 04/19/17 15:15 04/22/17 15:14 Sodium Chloride 500 ml @ 30 mls/hr [id number] IV 04/19/17 15:00 (Ativan) 1 mg PINKED EDGE SEWING MACHINE OPERATOR SL 04/19/17 15:15 04/22/17 15:14 (Percocet 5-325 Mg) 1 tab Q4H PRN PO 04/19/17 20:30 (Percocet 5-325 Mg) 2 tab Q4H PRN PO 04/19/17 20:30 (Ativan Inj) 0.5 mg UNSCH PRN IV PUSH 04/19/17 20:30 04/20/17 20:29 (Atropine Inj) 0.5 mg UNSCH PRN IV PUSH 04/19/17 20:30 Sodium Chloride 250 ml @ 500 mls/hr ONCE PRN IV 04/19/17 20:30 04/20/17 20:29 (Zofran Inj) 4 mg Q4H PRN IV PUSH 04/19/17 20:30 (Xylocaine 1% Inj (50 ml)) 10 ml UNSCH PRN INFIL 04/19/17 20:30 04/20/17 20:29 (Eliquis) 5 mg BID PO 04/20/17 09:00 04/20/17 09:03 (Lopressor) 50 mg BID PO 04/19/17 21:00 04/20/17 09:03 Patient Own Medication PT OWN MED: APTIOM (ESLICARBAZEPI... DAILY PO 04/20/17 09:00 Future Hold (Naprosyn) 250 mg BID PO 04/19/17 21:00 04/19/17 22:23 (Protonix) 40 mg DAILY PO 04/20/17 09:00 04/20/17 09:02 Miscellaneous Information ALL NURSING DEPARTME... UNSCH PRN .XX 04/19/17 20:44 04/20/17 20:43 Assessment and Plan Problem List: (1) Atrial fibrillation ICD Codes: I48.91 - Unspecified atrial fibrillation Plan: SP afib ablation In sinus rhythm Doing well Will be DH Follow up as previously scheduled (2) Palpitations ICD Codes: R00.2 - Palpitations Plan: No palpitation reported BP high BP log requested Kaitlin Hills MD Apr 20, 2017 11:43
--- NOTE | 2017-04-20 11:48 | EKG ---
Date Performed: 04/19/2017 Time Performed: 21:27:07 PTAGE: 51 years EKG: Sinus rhythm BORDERLINE RIGHT AXIS DEVIATION BORDERLINE ECG Compared to prior tracing no significant change PREVIOUS TRACING : 04/19/2017 16.27 DOCTOR: Vern Paris Interpretating Date/Time 04/20/2017 11:48:17
--- NOTE | 2017-04-20 13:01 | EKG ---
Date Performed: 04/19/2017 Time Performed: 16:27:58 PTAGE: 51 years EKG: Sinus bradycardia with sinus arrhythmia ST elevation suggestive Possible early repolarizati on Cannot exclude pericarditis. DOCTOR: Vern Paris Interpretating Date/Time 04/20/2017 12:59:56
--- NOTE | 2017-04-20 18:09 | EKG ---
Date Performed: 04/20/2017 Time Performed: 04:24:02 PTAGE: 51 years EKG: Sinus rhythm Inferior and lateral ST elevation suggests early repolarization Since previous tracing, no significa nt change noted Borderline ECG PREVIOUS TRACING : 04/19/2017 21.27 DOCTOR: Vern Paris Interpretating Date/Time 04/20/2017 18:07:28
== END 2017-04-20 13:05 | disposition home or self-care (01) ==
LOC: HDOC 14:47 → HDIC 14:48 → HCIS 21:49 → HDOC 04-20 13:05
PROVIDERS: ATTEND Internal Medicine Interventional Cardiology
DX: I48.2 Chronic atrial fibrillation (principal); I48.92 Unspecified atrial flutter; R00.2 Palpitations; R06.00 Dyspnea, unspecified; R07.9 Chest pain, unspecified; K21.9 Gastro-esophageal reflux disease without esophagitis; G40.909 Epilepsy, unspecified, not intractable, without status epilepticus; G43.909 Migraine, unspecified, not intractable, without status migrainosus; Z01.818 Encounter for other preprocedural examination
CPT/HCPCS: 80048; 85002; 85025; 85610; 85730; 86850; 86900; 86901; 93005; 93312; 93320; 93325; 93613; 93623; 93656; 93662; C1730; C1731; C1732; C1759; C1766; C2630; J1644; J1956; J2720

== ENCOUNTER 2017-04-21 02:17 | Inpatient (IN) | payer OTHER ==
[~2017-04-21] VITALS: Ht 185.4 cm; Wt 104.1 kg
[2017-04-21] VITALS (16 sets, daily range): BP systolic 114–191; BP diastolic 66–97; PULSE 66–90; RESP 14–35; TEMP 97.9–98.4; O2SAT 90–98
[~2017-04-21 02:17] MED LIST changes: +ALEV220T14 PO; +APIX5TAB PO; -CYCL10TA PO; -IBUP-232 PO; -PERC5TAB12 PO
[2017-04-21] MEDS ORDERED: HYDROmorphone HCL PF 2 MG/ML VIAL IV PUSH ONE ×2 (02:45→09:00)
[2017-04-21] MEDS ORDERED: SODIUM CHLORIDE 0.9% FLUSH 10 ML FLUSH IVF PRN (02:45)
[2017-04-21] MEDS ORDERED: ONDANSETRON HCL 4 MG/2 ML VIAL IV PUSH ONE (02:45)
[2017-04-21 02:55] LABS: BLOOD GAS BASE EXCESS 2.6 mmol/L (-2-2); BLOOD GAS HCO3 25 mmol/L (22-26); BLOOD GAS METHEMOGLOBIN 0.8 % (0-2); BLOOD GAS O2 HGB SATURATION 92 % (90-100); BLOOD GAS OXYGEN CONTENT 19.5 Vol % (12.0-20.0); BLOOD GAS PCO2 30 mmHg (38-42); BLOOD GAS PO2 74 mmHG (61-120); BLOOD GAS TOTAL HGB 15.1 G/DL (12.0-16.0); CRITICAL VALUE NO; DRAW SITE LT RADIAL; LITER FLOW 2 L/M; NUMBER OF ARTERIAL PUNCTURES 1; OXYGEN DEVICE NASAL CANNULA; TEMP CORR TO 98.6
[2017-04-21 02:56] LABS: STAT YES; ULNAR PULSE PRESENT
--- NOTE | 2017-04-21 03:04 | PD ---
HPI Chief Complaint: Chest Pain Time Seen by Provider: 02:32 Travel History International Travel<30 days: No Contact w/Intl Traveler<30days: No Traveled to known affect area: No History of Present Illness HPI The patient is a 51 year old -male who presents to the [facility] emergency department with a history of chest pain that he reports began around 10 PM last night and was mild initially, however it has gradually worsened through the night. He reports that at 1:30 AM he rolled over in bed and the pain became severe. The patient reports that the pain is sharp in character and 8 out of 10 in severity. He reports the pain is worse with taking a deep breath. He reports having associated shortness of breath. The patient's recent cardiac history is significant for undergoing a cardiac ablation for atrial fibrillation by on Wednesday, 2 days ago. The patient additionally reports that he had a cardiac catheterization to evaluate his coronary arteries by Dr. Torres of the [facility] approximately 2-3 weeks ago which showed normal coronary arteries. The patient has been taking Eliquis for anticoagulation. When the pain became severe he took 2 Percocet. The patient reports that the pain continued, therefore he decided to come to the emergency department for evaluation and treatment. The patient on arrival is tachypneic, hyperventilating. The patient reports that he has had some cough and congestion over the last few days. He reports that he does smoke cigarettes. Review of systems otherwise, the patient denies having any recent fevers. He reports that the pain is in bilateral sides of his neck, the anterior chest, and shoulders. The patient denies having any abdominal pain, vomiting, diarrhea , urinary symptoms, or neurologic symptoms. FOR[facility]LY [facility] Past Medical History Narrative Medical The patient's past medical history is significant for atrial fibrillation, acid reflux, osteoarthritis, history of chronic headaches, history of complex partial seizures, history of low back pain. Hx Anticoagulant Therapy: Yes (Eliquis) Atrial Fibrillation: Yes (atrial flutter per pt) Heart Rhythm Problems: Yes (ARRYTHMIAS) Cancer: No Cardiovascular Problems: Yes (Afib s/p abalation) Chest Pain: Yes Cerebrovascular Accident: No (epilepsy) Diminished Hearing: No Endocrine: No Gastrointestinal Disorders: Yes (GERD) GERD: Yes Genitourinary: No Hepatitis: No Hiatal Hernia: Yes Hypertension: Yes Immune Disorder: No Musculoskeletal: Yes (BULGING DISCS LUMBAR) Neurologic: Yes (SEIZURE) Psychiatric: No Reproductive: No Respiratory: Yes (SOB) Migraines: Yes Seizures: Yes (epilepsy ) Tetanus Vaccination: > 5 Years Influenza Vaccination: No Past Surgical History Narrative Surgical The Patient's past surgical history is significant for cardiac catheterization with normal coronary arteries reported, cardiac ablation, low back surgery, left hand surgery, hernia repair, rotator cuff repair. Abdominal Surgery: No AICD: No Body Medical Devices: SCREW RIGHT SHOULDER Cardiac Surgery: No Ear Surgery: No Endocrine Surgery: No Eye Surgery: No Genitourinary Surgery: Yes (REPAIR HYDROCELE X3) Gynecologic Surgery: No Joint Replacement: No Oral Surgery: Yes (TONSILECTOMY) Pacemaker: No Thoracic Surgery: No Tonsillectomy: Yes Other Surgery: Yes Social History Alcohol Use: No Tobacco Use: Yes Substance Use: No Allergies-Medications (Allergen,Severity, Reaction): Coded Allergies: meperidine (Unverified Allergy, Severe, PASSED OUT, 12/22/16) ergotamine (Verified Allergy, Unknown, Nausea/Vomiting, 04/19/17) Reported Meds & Prescriptions Reported Meds & Active Scripts Active Reported Eliquis (Apixaban) 5 Mg Tab 5 Mg PO BID Aleve Arthritis (Naproxen Sodium) 220 Mg Tab 220 Mg PO BID Omeprazole 40 Mg Cap 40 Mg PO DAILY Aptiom (Eslicarbazepine) 800 Mg Tab 800 Mg PO DAILY Metoprolol Tartrate 50 Mg Tab 50 Mg PO BID Review of Systems Except as stated in HPI: all other systems reviewed are Neg General / Constitutional: No: Fever Eyes: No: Visual changes HENT: Positive: Congestion, No: Headaches Cardiovascular: Positive: Chest Pain or Discomfort, Dyspnea on exertion Respiratory: Positive: Cough, Shortness of Breath Gastrointestinal: No: Nausea, Vomiting, Diarrhea, Abdominal Pain Genitourinary: No: Dysuria Musculoskeletal: No: Pain Skin: No Rash Neurologic: No: Weakness Psychiatric: No: Depression Endocrine: No: Polydipsia Hematologic/Lymphatic: No: Easy Bruising Physical Exam Narrative General: The patient is well-developed well-nourished male, uncomfortable appearing on arrival, hyperventilating. Head and Neck exam: Head is normocephalic atraumatic. Eyes: EOMI, pupils are equal round and reactive to light. Nose: Midline septum with pink mucous membranes Mouth: Dentition unremarkable. Moist mucus membranes. Posterior oropharynx is not erythematous. No tonsillar hypertrophy. Uvula midline. Airway patent. Neck: No palpable lymphadenopathy. No nuchal rigidity. No thyromegaly. Cardiovascular: Regular rate and rhythm without murmurs, gallops, or rubs. No pulse deficit to the extremities on simultaneous auscultation and palpation of his radial arteries. Lungs: The patient has decreased breath sounds in the bases bilaterally, no wheezes, rhonchi, or crackles are audible. The patient is splinting his breathing as he reports that taking a deep breath hurts. Abdomen: Soft, without tenderness to palpation in all 4 quadrants of the abdomen. No guarding, rebound, or rigidity. Normal bowel sounds are audible. No tenderness on palpation of McBurney's point. Extremities: No clubbing, cyanosis, or edema. 2+ pulses in all 4 extremities. No calf tenderness on palpation. Back: No spinous process tenderness to palpation. No costovertebral angle tenderness to palpation. Neurologic Exam: Grossly nonfocal. Skin Exam: No rash noted. Intact skin that is warm and dry. Data Data Last Documented VS Vital Signs Date Time Temp Pulse Resp B/P (MAP) Pulse Ox O2 Delivery O2 Flow Rate FiO2 04/21/17 04:12 71 14 123/77 (92) Nasal Cannula 2.00 04/21/17 02:52 98 Orders Orders Complete Blood Count With Diff (04/21/17 02:35) Comprehensive Metabolic Panel (04/21/17 02:35) B-Type Natriuretic Peptide (04/21/17 02:35) Act Partial Throm Time (Ptt) (04/21/17 02:35) Prothrombin Time / Inr (Pt) (04/21/17 02:35) Magnesium (Mg) (04/21/17 02:35) Ckmb (Isoenzyme) Profile (04/21/17 02:35) Troponin I (04/21/17 02:35) Urinalysis - C+S If Indicated (04/21/17 02:35) Iv Access Insert/Monitor (04/21/17 02:35) Electrocardiogram (04/21/17 02:35) Ecg Monitoring (04/21/17 02:35) Oximetry (04/21/17 02:35) Oxygen Administration (04/21/17 02:35) Chest, Single Ap (04/21/17 02:35) Sodium Chloride 0.9% Flush (Ns Flush) (04/21/17 02:45) Arterial Blood Gas (Abg) (04/21/17 02:35) Westergren Sedimentation Rate (04/21/17 02:35) Hydromorphone Pf Inj (Dilaudid Pf Inj) (04/21/17 02:45) Ondansetron Inj (Zofran Inj) (04/21/17 02:45) Ed Poc Ultrasound (04/21/17 02:38) Blood Culture (04/21/17 03:19) Lactic Acid Sepsis Protocol (04/21/17 03:19) Ceftriaxone Inj (Rocephin Inj) (04/21/17 03:45) Azithromycin Inj (Zithromax Inj) (04/21/17 03:45) CKMB (04/21/17 02:40) CKMB% (04/21/17 02:40) Admit Order (Ed Use Only) (04/21/17 04:33) Labs Laboratory Tests Test 04/21/17 02:40 04/21/17 03:55 White Blood Count 21.6 TH/MM3 Red Blood Count 4.72 MIL/MM3 Hemoglobin 15.4 GM/DL Hematocrit 45.0 % Mean Corpuscular Volume 95.3 FL Mean Corpuscular Hemoglobin 32.6 PG Mean Corpuscular Hemoglobin Concent 34.1 % Red Cell Distribution Width 13.4 % Platelet Count 219 TH/MM3 Mean Platelet Volume 8.8 FL Neutrophils (%) (Auto) 69.9 % Lymphocytes (%) (Auto) 23.2 % Monocytes (%) (Auto) 6.1 % Eosinophils (%) (Auto) 0.6 % Basophils (%) (Auto) 0.2 % Neutrophils # (Auto) 15.1 TH/MM3 Lymphocytes # (Auto) 5.0 TH/MM3 Monocytes # (Auto) 1.3 TH/MM3 Eosinophils # (Auto) 0.1 TH/MM3 Basophils # (Auto) 0.0 TH/MM3 CBC Comment DIFF FINAL Differential Comment Erythrocyte Sedimentation Rate 1 mm/hr Prothrombin Time 10.0 SEC Prothromb Time International Ratio 1.0 RATIO Activated Partial Thromboplast Time 28.4 SEC Blood Gas Puncture Site LT RADIAL Blood Gas Patient Temperature 98.6 Blood Gas HCO3 25 mmol/L Blood Gas Base Excess 2.6 mmol/L Blood Gas Oxygen Saturation 92 % Arterial Blood pH 7.53 Arterial Blood Partial Pressure CO2 30 mmHg Arterial Blood Partial Pressure O2 74 mmHG Arterial Blood Oxygen Content 19.5 Vol % Arterial Blood Carboxyhemoglobin 3.0 % Arterial Blood Methemoglobin 0.8 % Blood Gas Hemoglobin 15.1 G/DL Oxygen Delivery Device NASAL CANNULA Blood Gas Liter Flow 2 L/M Blood Urea Nitrogen 15 MG/DL Creatinine 1.02 MG/DL Random Glucose 124 MG/DL Total Protein 6.5 GM/DL Albumin 3.7 GM/DL Calcium Level 8.8 MG/DL Magnesium Level 1.8 MG/DL Alkaline Phosphatase 200 U/L Aspartate Amino Transf (AST/SGOT) 27 U/L Alanine Aminotransferase (ALT/SGPT) 33 U/L Total Bilirubin 0.2 MG/DL Sodium Level 140 MEQ/L Potassium Level 3.7 MEQ/L Chloride Level 106 MEQ/L Carbon Dioxide Level 28.7 MEQ/L Anion Gap 5 MEQ/L Estimat Glomerular Filtration Rate 76 ML/MIN Total Creatine Kinase 166 U/L Creatine Kinase MB 8.5 NG/ML Troponin I 2.64 NG/ML B-Type Natriuretic Peptide 98 PG/ML Lactic Acid Level 0.8 mmol/L MDM Medical Decision Making Medical Screen Exam Complete: Yes Emergency Medical Condition: Yes Medical Record Reviewed: Yes Interpretation(s) Last Impressions Chest X-Ray 04/21/17 0235 Signed Impressions: Service Date/Time: Friday, April 21, 2017 02:49 - CONCLUSION: Patchy left lower lung infiltrates. Jonathan Pride MD Differential Diagnosis Pericardial effusion, versus pericarditis, versus acute coronary syndrome, versus pleurisy, versus pulmonary embolism, versus pneumonia Narrative Course During the course of the patients emergency department visit, the patients history, examination, and differential diagnosis were reviewed with the patient. The patient was placed on a surveillance monitor with oximetry and frequent blood pressure monitoring. The patient had IV access obtained and blood work sent for analysis. The patient had an ECG done on arrival that shows a sinus rhythm heart rate of 80, ST elevation that appears to be early repolarization noted, this is compared to a prior EKG done at this facility which is similar in appearance. QRS duration is 96 ms, QTC 389 ms. A bedside point of care ultrasound was done by me to assess his cardiac activity and evaluate for possible pericardial effusion. No significant pericardial effusion was noted. Normal wall motion was noted. The patient was initially provided hydromorphone 1 mg IV for pain, Zofran 4 mg IV for nausea. The patients laboratory studies were reviewed and remarkable for a white count of 21.6, hemoglobin 15.4, platelets 219. The patient had blood cultures 2 drawn, lactic acid sent for analysis. The patient was started on IV antibiotic of Rocephin 1 g IV, Zithromax IV 100 IV. A sedimentation rate was 1 decreased the likelihood of pericarditis. CMP is remarkable for glucose of 124, alkaline phosphatase 200, CPK 166, troponin I 2.64, BNP 98, lactic acid 0.8, PT 10, PTT 28.4. An ABG was done on arrival that shows a pH of 7.53, PCO2 30, PO2 19.5, consistent with hyperventilation Radiology studies were reviewed and remarkable for a chest x-ray that shows a patchy left lower lung infiltrate. The patient's elevated troponin was discussed with who is covering for . Given the patient's recent ablation, he did not recommend any further intervention from a cardiac standpoint. He recommended continuing on Eliquis and other cardiac medications that were prescribed by . He felt that the patient's elevated troponin was likely related to his cardiac ablation. We will repeat the cardiac labs and ECG. The patient will be continued on IV antibiotic and admitted to the hospital. The patients results were discussed with the patient, including the plan of care. I explained that further testing and/ or monitoring is indicated based on the patients history, examination, and/ or laboratory findings. Therefore, I recommended admission for additional evaluation. The patient expressed understanding and was agreeable with this plan. The patient was admitted to the hospital in guarded condition and [facility] Critical Care Narrative Aggregate critical care time was 35 minutes. Time to perform other separately billable procedures was not included in the critical care time. My time did not include minutes spent treating any other patients simultaneously or on activities that did not directly contribute to the patient's treatment. The services I provided to this patient were to treat and/or prevent clinically significant deterioration that could result in: Cardiac Tamponade, versus cardiovascular collapse related to sepsis, versus respiratory failure I provided critical care services requiring my management, as noted below: Chart data review, documentation time, medication orders and management, vital sign assessments/reviewing monitor data, ordering and reviewing lab tests, ordering and interpreting/reviewing x-rays and diagnostic studies, care of the patient and discussion of the patient with the admitting physicians. Procedures Procedure Narrative A [id number] cardiac ultrasound was done by me. Ultrasound reveals no significant pericardial effusion. Normal cardiac activity appears to be present without any significant wall motion abnormality. Physician Communication Physician Communication The patient's case including history, pertinent physical examination findings, and laboratory studies were discussed with and Dr. Paul. It was agreed that [facility] Diagnosis Primary Impression: Chest pain Qualified Codes: R07.1 - Chest pain on breathing Additional Impressions: History of radiofrequency ablation procedure for cardiac arrhythmia Pneumonia Qualified Codes: J18.1 - Lobar pneumonia, unspecified organism Admitting Information Admitting Physician Requests: Admit Tangela Paris MD Apr 21, 2017 03:04
[2017-04-21 03:08] LABS: AUTOMATED NEUTROPHIL # 15.1 TH/MM3 (1.8-7.7); BASOPHIL % 0.2 % (0.0-2.0); EOSINOPHIL # 0.1 TH/MM3 (0-0.4); EOSINOPHIL % 0.6 % (0.0-4.0); HEMO FLAGS DIFF FINAL; LYMPH % 23.2 % (9.0-44.0); MEAN CELL VOLUME 95.3 FL (80.0-100.0); MEAN CORPUSCULAR HEMOGLOBIN 32.6 PG (27.0-34.0); MEAN CORPUSCULAR HGB CONC 34.1 % (32.0-36.0); MONO % 6.1 % (0.0-8.0); NEUT % 69.9 % (16.0-70.0); PLATELET COUNT 219 TH/MM3 (150-450); RED BLOOD COUNT 4.72 MIL/MM3 (4.50-5.90); RED CELL DISTRIBUTION WIDTH 13.4 % (11.6-17.2); WHITE BLOOD COUNT 21.6 TH/MM3 (4.0-11.0)
[2017-04-21 03:19] LABS: APTT (PATIENT) 28.4 SEC (24.3-30.1)
--- NOTE | 2017-04-21 03:26 | RADRPT ---
EXAM DATE/TIME: 04/21/2017 02:49 [place] COMPARISON: No previous studies available for comparison. INDICATIONS : Substernal chest pain. MEDICAL HISTORY : Hypertension. Gastroesophageal reflux disease. SURGICAL HISTORY : None. ENCOUNTER: Initial ACUITY: 1 day PAIN SCORE: 8/10 LOCATION: chest substernal. FINDINGS: Single frontal view of the chest demonstrates patchy infiltrates in left lower lobe without consolida tion. Right lung is clear. No evidence of pneumothorax. The heart is normal in size. Both hemidia phragms are well delineated. CONCLUSION: Patchy left lower lung infiltrates. Jonathan Pride MD on April 21, 2017 at 3:24 Board Certified Radiologist. This report was verified electronically.
[2017-04-21 03:28] LABS: ALT (GPT) 33 U/L (12-78); ANION GAP 5 MEQ/L (5-15); AST (GOT) 27 U/L (15-37); BICARBONATE 28.7 MEQ/L (21.0-32.0); BLOOD UREA NITROGEN 15 MG/DL (7-18); CHLORIDE 106 MEQ/L (98-107); GLOMERULAR FILTRATION RATE 76 ML/MIN (>89); MAGNESIUM 1.8 MG/DL (1.5-2.5); POTASSIUM 3.7 MEQ/L (3.5-5.1); SODIUM (NA) 140 MEQ/L (136-145)
[2017-04-21 03:32] LABS: ALKALINE PHOSPHATASE 200 U/L (45-117); CREATINE KINASE 166 U/L (39-308); TOTAL BILIRUBIN ADULT 0.2 MG/DL (0.2-1.0)
[2017-04-21] MEDS ORDERED: cefTRIAXone INJ 1,000 MG in SODIUM CHLORIDE 0.9% INJ 100 ML IV ONE (03:45)
[2017-04-21] MEDS ORDERED: AZITHROMYCIN INJ 500 MG in SODIUM CHLOR 0.9% 250 ML INJ 250 ML IV ONE (03:45)
[2017-04-21 04:16] LABS: CKMB 8.5 NG/ML (0.5-3.6)
[2017-04-21] MEDS ORDERED: methylPREDNISolone SOD SUCC 125 MG/2 ML VIAL IV PUSH ONE (05:30)
[2017-04-21 07:05] LABS: CREATINE KINASE 119 U/L (39-308)
[2017-04-21 07:33] LABS: CKMB 6.6 NG/ML (0.5-3.6)
[2017-04-21] MEDS ORDERED: ONDANSETRON HCL 4 MG/2 ML VIAL IV PRN (08:15)
[2017-04-21] MEDS ORDERED: ACETAMINOPHEN 325 MG TAB PO PRN (08:15)
[2017-04-21] MEDS ORDERED: oxyCODONE/ACETAMINOPHEN 7.5 MG/325 MG TAB PO PRN (08:30)
[2017-04-21] MEDS ORDERED: RESP: ALBUTEROL 2.5 MG/IPRATROPIUM 0.5 MG NEB (PRN) NEB (08:45)
--- NOTE | 2017-04-21 09:10 | HHI.HP ---
HPI Service [facility] Hospitalists Primary Care Physician Jesus Chandler MD Admission Diagnosis Pneumonia, post ablation Chief Complaint: Chest pain Travel History International Travel<30 Days: No Contact w/Intl Traveler <30 Da: No Traveled to Known Affected Are: No History of Present Illness Mr. Torres is a pleasant 51 y/o male with atrial fibrillation s/p ablation procedure on 04/19/[address] Hills and was just discharged from [facility] on . He states that after the procedure on 04/19/17 he was feeling great and his HR was controlled per the pt. He felt well following discharge yesterday. He states that he went out to eat after discharge and went home to put up his [employer] tree decorations. He denies doing any significant exertional activity or heavy lifting. Yesterday evening he ate some sausage and cheese and reports that he did have some heartburn/reflux after that. Then last night around 10: 00PM he began having mild midsternal chest pain that seemed to gradually worsen through the night. He reports that at 1:30 AM he rolled over in bed and the pain became severe. The patient reports that the pain is sharp in character and 8 out of 10 in severity. He reports the pain is worse with taking a deep breath or coughing. He reports that yesterday he noted some increased sinus congestion and nonproductive cough. He has felt SOB but states that its because he can't take a deep breath due to the pain. He reports that the pain is on bilateral sides of his neck, the anterior chest, and shoulders. When the pain became severe he took 2 Percocet but the pain continued, therefore he decided to come to the emergency department for evaluation and treatment. The patient on arrival the pt was tachypneic, hyperventilating. EKG done on arrival showed a sinus rhythm heart rate of 80, ST elevation that appears to be early repolarization noted, this is similar in comparison to a prior EKG done at this facility. Pt had a bedside ultrasound done in the ER, which per the ED physicians notes showed no significant pericardial effusion and normal wall motion was noted. The patient was given Hydromorphone 1 mg IV for pain which he states did provide him with significant relief of the pain. The patients labs were remarkable for WBC count 21.6, hemoglobin 15.4, platelets 219. The patient was started on IV Rocephin 1 g IV, Zithromax IV. Cardiac enzymes were checked and noted CPK 166, troponin I 2.64. An ABG was done on arrival that shows a pH of 7.53, PCO2 30, PO2 19.5, consistent with hyperventilation. Chest x-ray showed a patchy left lower lung infiltrate. The patient denies having any recent fevers. The patient denies having any abdominal pain, vomiting, diarrhea , urinary symptoms, or neurologic symptoms. The ED physician discussed the case and elevated CE with who is covering for , and per her documentation it was felt that the elevated CE were likely secondary to the pts recent ablation, and he did not recommend any further intervention from a cardiac standpoint. He recommended continuing on Eliquis and other cardiac medications that were prescribed by . The patient additionally reports that he had a cardiac catheterization to evaluate his coronary arteries by Dr. Torres of the [facility], approximately 2-3 weeks ago which showed normal coronary arteries per the pts report. The patient has been taking Eliquis for anticoagulation for about a week prior to his ablation procedure. Review of Systems Constitutional: DENIES: Fever, Chills Eyes: DENIES: Vision loss Ears, nose, mouth, throat: COMPLAINS OF: Running Nose, DENIES: Hearing loss, Hoarseness Respiratory: COMPLAINS OF: Cough, Wheezing, Sputum production, Shortness of breath Cardiovascular: COMPLAINS OF: Chest pain, DENIES: Palpitations, Lower Extremity Edema Gastrointestinal: COMPLAINS OF: GERD, Reflux, DENIES: Abdominal pain, Constipation, Diarrhea, Nausea, Vomiting Genitourinary: DENIES: Hematuria, Dysuria Musculoskeletal: COMPLAINS OF: Neck pain Integumentary: DENIES: Rash Neurologic: DENIES: Headache Psychiatric: DENIES: Confusion Past Family Social History Past Medical History A. fib/flutter Seizure disorder, no seizure in the last few years GERD Chronic back pain Chronic tobacco use Past Surgical History Cardiac ablation on 04/19/[address] Hills [facility] 03/[address] Torres L2-L3, L3-L4 left hemilaminectomy and microdiscectomy on 12/01/[address] Tolliver Left hand surgery Right rotator cuff repair Bilateral inguinal hernia repair Tonsillectomy Reported Medications -Eliquis 5 Mg PO BID -Aleve Arthritis 220 Mg PO BID -Omeprazole 40 Mg PO DAILY -Aptiom 800 Mg PO DAILY -Metoprolol Tartrate 50 Mg PO BID Allergies: Coded Allergies: meperidine (Unverified Allergy, Severe, PASSED OUT, 12/22/16) ergotamine (Verified Allergy, Unknown, Nausea/Vomiting, 04/19/17) Family History Noncontributory Social History (+)Tobacco use, smokes 1 ppd since age 7 (42 years) (+)Marijuana use, daily, "takes 2-3 hits before bed" Denies any alcohol use Physical Exam Vital Signs Vital Signs Date Time Temp Pulse Resp B/P (MAP) Pulse Ox O2 Delivery O2 Flow Rate FiO2 04/21/17 07:00 74 17 121/78 (92) 97 Room Air 04/21/17 05:41 98.4 66 20 114/66 (82) 97 Room Air 04/21/17 04:12 71 14 123/77 (92) Nasal Cannula 2.00 04/21/17 02:52 98 2.00 04/21/17 02:52 98 Nasal Cannula 2.00 04/21/17 02:23 80 35 134/85 (101) 96 Room Air 04/21/17 02:21 83 36 90 Room Air 04/21/17 02:18 89 28 191/97 (128) 90 Room Air Physical Exam GENERAL: This is a well-nourished, well-developed patient, in no apparent distress. HEENT: Atraumatic. Normocephalic. No temporal or scalp tenderness. No scleral icterus. Airway patent. NECK: Trachea midline, supple, nontender. CARDIO: Regular. NO noted pericardial friction rub RESP: Crackles at the bases bilaterally. Inspiratory wheeze. Egophony noted in the LLL ABD: +BS, soft, non-tender, nondistended. EXT: Extremities without clubbing, cyanosis, or edema. NEURO: Awake and alert. Motor and sensory grossly within normal limits. Normal speech. Laboratory Laboratory Tests Test 04/21/17 02:40 04/21/17 03:55 04/21/17 05:59 White Blood Count 21.6 Red Blood Count 4.72 Hemoglobin 15.4 Hematocrit 45.0 Mean Corpuscular Volume 95.3 Mean Corpuscular Hemoglobin 32.6 Mean Corpuscular Hemoglobin Concent 34.1 Red Cell Distribution Width 13.4 Platelet Count 219 Mean Platelet Volume 8.8 Neutrophils (%) (Auto) 69.9 Lymphocytes (%) (Auto) 23.2 Monocytes (%) (Auto) 6.1 Eosinophils (%) (Auto) 0.6 Basophils (%) (Auto) 0.2 Neutrophils # (Auto) 15.1 Lymphocytes # (Auto) 5.0 Monocytes # (Auto) 1.3 Eosinophils # (Auto) 0.1 Basophils # (Auto) 0.0 CBC Comment DIFF FINAL Differential Comment Erythrocyte Sedimentation Rate 1 Prothrombin Time 10.0 Prothromb Time International Ratio 1.0 Activated Partial Thromboplast Time 28.4 Blood Gas Puncture Site LT RADIAL Blood Gas Patient Temperature 98.6 Blood Gas HCO3 25 Blood Gas Base Excess 2.6 Blood Gas Oxygen Saturation 92 Arterial Blood pH 7.53 Arterial Blood Partial Pressure CO2 30 Arterial Blood Partial Pressure O2 74 Arterial Blood Oxygen Content 19.5 Arterial Blood Carboxyhemoglobin 3.0 Arterial Blood Methemoglobin 0.8 Blood Gas Hemoglobin 15.1 Oxygen Delivery Device NASAL CANNULA Blood Gas Liter Flow 2 Blood Urea Nitrogen 15 Creatinine 1.02 Random Glucose 124 Total Protein 6.5 Albumin 3.7 Calcium Level 8.8 Magnesium Level 1.8 Alkaline Phosphatase 200 Aspartate Amino Transf (AST/SGOT) 27 Alanine Aminotransferase (ALT/SGPT) 33 Total Bilirubin 0.2 Sodium Level 140 Potassium Level 3.7 Chloride Level 106 Carbon Dioxide Level 28.7 Anion Gap 5 Estimat Glomerular Filtration Rate 76 Total Creatine Kinase 166 119 Creatine Kinase MB 8.5 6.6 Troponin I 2.64 2.05 B-Type Natriuretic Peptide 98 Lactic Acid Level 0.8 Date/Time Source Procedure Growth Status 04/21/17 03:55 Blood Peripheral Aerobic Blood Culture Pending Received 04/21/17 03:55 Blood Peripheral Anaerobic Blood Culture Pending Received Result Diagram: 04/21/17 0240 04/21/17 0240 Imaging Last Impressions Chest X-Ray 04/21/17234 Signed Impressions: Service Date/Time: Friday, April 21, 2017 02:49 - CONCLUSION: Patchy left lower lung infiltrates. MD Drake Benavides VTE Risk Assessment Drake VTE Risk Assessment: Mod/High Risk (score >= 2) Pieterrini Risk Assessment Model Point Value = 1 Point Value = 2 Point Value = 3 Point Value = 5 Age 41-60 Minor surgery BMI > 25 kg/m2 Swollen legs Varicose veins or History of unexplained or recurrent spontaneous Oral contraceptives or hormone replacement Sepsis (< 1 month) Serious lung disease, including pneumonia (< 1 month) Abnormal pulmonary function Acute myocardial infarction Congestive heart failure (< 1 month) History of inflammatory bowel disease Medical patient at bed rest Age 61-74 Arthroscopic surgery Major open surgery (> 45 min) Laparoscopic surgery (> 45 min) Malignancy Confined to bed (> 72 hours) Immobilizing plaster cast Central venous access Age >= 75 History of VTE Family history of VTE Factor V Leiden Prothrombin [id number] Lupus anticoagulant Anticardiolipin antibodies Elevated serum homocysteine Heparin-induced thrombocytopenia Other congenital or acquired thrombophilia Stroke (< 1 month) Elective arthroplasty Hip, pelvis, or leg fracture Acute spinal cord injury (< 1 month) Prophylaxis Regimen Total Risk Factor Score Risk Level Prophylaxis Regimen 0-1 Low Early ambulation 2 Moderate Order ONE of the following: *Sequential Compression Device (SCD) *Heparin 5000 units SQ BID 3-4 Higher Order ONE of the following medications: *Heparin 5000 units SQ TID *Enoxaparin/Lovenox 40 mg SQ daily (WT < 150 kg, CrCl > 30 mL/min) *Enoxaparin/Lovenox 30 mg SQ daily (WT < 150 kg, CrCl > 10-29 mL/min) *Enoxaparin/Lovenox 30 mg SQ BID (WT < 150 kg, CrCl > 30 mL/min) AND/OR *Sequential Compression Device (SCD) 5 or more Highest Order ONE of the following medications: *Heparin 5000 units SQ TID (Preferred with Epidurals) *Enoxaparin/Lovenox 40 mg SQ daily (WT < 150 kg, CrCl > 30 mL/min) *Enoxaparin/Lovenox 30 mg SQ daily (WT < 150 kg, CrCl > 10-29 mL/min) *Enoxaparin/Lovenox 30 mg SQ BID (WT < 150 kg, CrCl > 30 mL/min) AND *Sequential Compression Device (SCD) Assessment and Plan Problem List: (1) Chest pain ICD Codes: R07.9 - Chest pain, unspecified Status: Acute Plan: Patient is a 51 y/o male with atrial fibrillation s/p ablation procedure on 04/19/[address] Hills and was just discharged from [facility] on 04/20/17. He states that after the procedure on 04/19/17 he was feeling great and his HR was controlled per the pt. He felt well following discharge yesterday. He states that he went out to eat after discharge and went home to put up his [employer] tree decorations. He denies doing any significant exertional activity or heavy lifting. Yesterday evening he ate some sausage and cheese and reports that he did have some heartburn/reflux after that. Then last night around 10:00PM he began having mild midsternal chest pain that seemed to gradually worsen through the night. He reports that at 1:30 AM he rolled over in bed and the pain became severe. The patient reports that the pain is sharp in character and 8 out of 10 in severity. He reports the pain is worse with taking a deep breath or coughing. He reports that yesterday he noted some increased sinus congestion and nonproductive cough. He has felt SOB but states that its because he can't take a deep breath due to the pain. He reports that the pain is on bilateral sides of his neck, the anterior chest, and shoulders. When the pain became severe he took 2 Percocet but the pain continued, therefore he decided to come to the emergency department for evaluation and treatment. Chest pain Possible Pneumonia - The patient on arrival the pt was tachypneic, hyperventilating. An ABG was done on arrival that shows a pH of 7.53, PCO2 30, PO2 19.5, consistent with hyperventilation. - EKG done on arrival showed a sinus rhythm heart rate of 80, ST elevation that appears to be early repolarization noted, this is similar in comparison to a prior EKG done at this facility. - Pt had a bedside ultrasound done in the ER, which per the ED physicians notes showed no significant pericardial effusion and normal wall motion was noted. - The patients labs were remarkable for WBC count 21.6, hemoglobin 15.4, platelets 219. - The patient was started on IV Rocephin 1 g IV, Zithromax IV. - Chest x-ray showed a patchy left lower lung infiltrate. - Cardiology was consulted in the ED - Continue on Eliquis and Metoprolol. - Dilaudid x one dose now and Percocet PRN - Continue IV Rocephin and Azithromycin - Duonebs Q4H WA and Q2H PRN - Pt was given a dose of Solu-Medrol in the ED as well. We will continue the Solu-Medrol - CXR in AM A. fib s/p recent ablation on 04/19/17 - The patient additionally reports that he had a cardiac catheterization to evaluate his coronary arteries by Dr. Torres of the [facility], approximately 2-3 weeks ago which showed normal coronary arteries per the pts report. - Cont. Eliquis and BB. - Cardiology is consulted. - Cardiac enzymes were checked and noted CPK 166 --> 119, troponin I 2.64 -- > 2.05. - The ED physician discussed the case and elevated CE with who is covering for , and per her documentation it was felt that the elevated CE were likely secondary to the pts recent ablation, and he did not recommend any further intervention from a cardiac standpoint. - We are considering in the differential post-ablation pericarditis in light of the EKG changes but as he already anticoagulated we would like to discuss the case with Cardiology before starting NSAIDs - ESR was 1 which would decrease the likelihood of pericarditis but cannot rule this out completely Tobacco use - Pt is a chronic tobacco user - Nicotine patch Chronic back pain - Pt s/p L2-L3, L3-L4 left hemilaminectomy and microdiscectomy on 12/01/[address] Tolliver - Pain control PRN (2) Pneumonia ICD Codes: J18.9 - Pneumonia, unspecified organism Status: Acute Plan: - See above (3) Atrial fibrillation ICD Codes: I48.91 - Unspecified atrial fibrillation Plan: - See above (4) History of radiofrequency ablation procedure for cardiac arrhythmia ICD Codes: Z98.890 - Other specified postprocedural states Status: Acute Plan: - See above (5) Back pain ICD Codes: M54.9 - Dorsalgia, unspecified Status: Chronic Plan: - See above (6) Tobacco abuse ICD Codes: Z72.0 - Tobacco use Status: Chronic Plan: - See above Assessment and Plan Patient examined. Assessment and plan formulated with Lisa Queen PA-C. I agree with the above. s/p afib ablation concern for pericarditis with timing and ekg changes left lung pna possible. atelectasis from splinting possible cont abx and steroid/nebs given bronchospasm/rhonci consider colchicine after seen by cardiology would be hard to give nsaids as pt on [facility] Physician Certification 2 Midnight Certification Type: Admission for Inpatient Services Order for Inpatient Services The services are ordered in accordance with Medicare regulations or non- Medicare payer requirements, as applicable. In the case of services not specified as inpatient-only, they are appropriately provided as inpatient services in accordance with the 2-midnight benchmark. Estimated LOS (days): 3 3 days is the estimated time the patient will need to remain in the hospital, assuming treatment plan goals are met and no additional complications. Post-Hospital Plan: Not yet determined Problem Qualifiers (1) Chest pain: Qualified Codes: R07.1 - Chest pain on breathing (2) Pneumonia: Qualified Codes: J18.1 - Lobar pneumonia, unspecified organism (3) Atrial fibrillation: Qualified Codes: I48.0 - Paroxysmal atrial fibrillation Lisa Queen Apr 21, 2017 09:10 Jaylen Painting MD Apr 21, 2017 20:26
[2017-04-21] MEDS: METOPROLOL TARTRATE 50 MG TAB PO SCH ×2 (09:58→19:56)
[2017-04-21] MEDS: PANTOPRAZOLE SOD 40 MG DELAYED RELEASE TAB PO SCH (09:58)
[2017-04-21] MEDS: APIXABAN 5 MG TABLET PO SCH ×2 (09:59→19:56)
[2017-04-21] MEDS: RESP: ALBUTEROL 2.5 MG/IPRATROPIUM 0.5 MG NEB (SCH) NEB ×3 (11:26→19:30)
[2017-04-21] MEDS ORDERED: NICOTINE 14 MG/24 HR PATCH T-DERMAL ONE (14:00)
[2017-04-21] MEDS: methylPREDNISolone SOD SUCC 125 MG/2 ML VIAL IV PUSH SCH ×2 (14:00→19:55)
--- NOTE | 2017-04-21 14:57 | EKG ---
Date Performed: 04/21/2017 Time Performed: 07:58:23 PTAGE: 51 years EKG: Sinus rhythm POSSIBLE INFERIOR MYOCARDIAL INFARCTION ABNORMAL ECG PREVIOUS TRACING : 04/21/2017 05.56 DOCTOR: Booker Loyd Interpretating Date/Time 04/21/2017 14:56:12
--- NOTE | 2017-04-21 15:06 | EKG ---
Date Performed: 04/21/2017 Time Performed: 05:56:43 PTAGE: 51 years EKG: Sinus rhythm POSSIBLE INFERIOR MYOCARDIAL INFARCTION ABNORMAL ECG PREVIOUS TRACING : 04/20/2017 04.24 DOCTOR: Booker Loyd Interpretating Date/Time 04/21/2017 15:04:54
--- NOTE | 2017-04-21 15:10 | EKG ---
Date Performed: 04/21/2017 Time Performed: 02:29:34 PTAGE: 51 years EKG: Sinus rhythm EARLY REPOLARIZATION BORDERLINE ECG PREVIOUS TRACING : 04/20/2017 04.24 DOCTOR: Booker Loyd Interpretating Date/Time 04/21/2017 15:08:44
[2017-04-21] MEDS ORDERED: MORPHINE SULFATE 4 MG/ML INJ IV PUSH PRN (16:45)
[2017-04-21] MEDS: HYDROmorphone HCL PF 2 MG/ML VIAL IV PRN (18:05)
[2017-04-21] MEDS: COLCHICINE 0.6 MG TAB PO SCH (21:49)
[2017-04-22] VITALS (30 sets, daily range): BP systolic 120–154; BP diastolic 68–95; PULSE 78–105; RESP 18–19; TEMP 97.6–98.6; O2SAT 91–100
[2017-04-22] MEDS: AZITHROMYCIN INJ 500 MG in SODIUM CHLOR 0.9% 250 ML INJ 250 ML IV SCH (03:24)
[2017-04-22] MEDS: cefTRIAXone INJ 1,000 MG in SODIUM CHLORIDE 0.9% INJ 100 ML IV SCH (03:24)
[2017-04-22] MEDS: methylPREDNISolone SOD SUCC 125 MG/2 ML VIAL IV PUSH SCH ×4 (03:33→21:01)
[2017-04-22] MEDS: HYDROmorphone HCL PF 2 MG/ML VIAL IV PRN (03:33)
[2017-04-22 06:17] LABS: AUTOMATED NEUTROPHIL # 19.8 TH/MM3 (1.8-7.7); BASOPHIL # 0.1 TH/MM3 (0-0.2); BASOPHIL % 0.4 % (0.0-2.0); HEMO FLAGS DIFF FINAL; LYMPH % 7.8 % (9.0-44.0); LYMPHOCYTE # 1.8 TH/MM3 (1.0-4.8); MEAN CELL VOLUME 95.6 FL (80.0-100.0); MEAN CORPUSCULAR HEMOGLOBIN 32.3 PG (27.0-34.0); MEAN CORPUSCULAR HGB CONC 33.8 % (32.0-36.0); MONO % 5.4 % (0.0-8.0); NEUT % 86.4 % (16.0-70.0); PLATELET COUNT 214 TH/MM3 (150-450); RED CELL DISTRIBUTION WIDTH 13.1 % (11.6-17.2); WHITE BLOOD COUNT 22.9 TH/MM3 (4.0-11.0)
--- NOTE | 2017-04-22 07:03 | RADRPT ---
EXAM DATE/TIME: 04/22/2017 06:19 [place] COMPARISON: CHEST SINGLE AP, April 21, 2017, 2:49. INDICATIONS : Shortness of breath, pneumonia. MEDICAL HISTORY : Hypertension. Gastroesophageal reflux disease. SURGICAL HISTORY : None. ENCOUNTER: Subsequent ACUITY: 2 days PAIN SCORE: 0/10 LOCATION: Bilateral chest FINDINGS: There is a new ill-defined horizontal opacity in the costophrenic angles bilaterally without loss of delineation of the hemidiaphragms. No definite infiltrate in the retrocardiac region. Equalization of pulmonary flow. No peribronchial thickening. The heart is normal size. CONCLUSION: Interval development of infiltrates or atelectasis in the lower lungs bilaterally. Jonathan Pride MD on April 22, 2017 at 7:01 Board Certified Radiologist. This report was verified electronically.
[2017-04-22] MEDS: RESP: ALBUTEROL 2.5 MG/IPRATROPIUM 0.5 MG NEB (SCH) NEB ×4 (07:55→19:31)
--- NOTE | 2017-04-22 08:55 | HHI.PR ---
Subjective Remarks feels a little better this AM. able to take a deeper breath. Objective Vitals nad heart reg. no rub lung crackles mostly left base abd /snt ext no edema Vital Signs Date Time Temp Pulse Resp B/P (MAP) Pulse Ox O2 Delivery O2 Flow Rate FiO2 04/22/17 05:53 82 04/22/17 04:20 97.9 79 18 145/86 (105) 93 04/22/17 04:00 78 04/22/17 03:00 82 04/22/17 02:00 82 04/22/17 01:00 80 04/22/17 00:20 98.3 80 18 120/68 (85) 96 04/22/17 00:00 78 04/21/17 23:00 79 04/21/17 22:00 80 04/21/17 21:00 82 04/21/17 20:20 98.3 85 18 163/86 (111) 94 04/21/17 20:00 90 04/21/17 19:31 92 Nasal Cannula 3.00 04/21/17 19:00 80 04/21/17 15:00 97.9 66 18 138/83 (101) 94 04/21/17 14:06 04/21/17 11:48 71 20 136/80 (98) 92 Nasal Cannula 2.00 04/21/17 11:22 92 Nasal Cannula 2.00 Result Diagram: 04/22/17 0607 04/22/17 0607 Imaging Last Impressions Chest X-Ray 04/21/17 0235 Signed Impressions: Service Date/Time: Friday, April 21, 2017 02:49 - CONCLUSION: Patchy left lower lung infiltrates. Jonathan Pride MD A/P Problem List: (1) Chest pain ICD Codes: R07.9 - Chest pain, unspecified Status: Acute Plan: Patient is a 51 y/o male with atrial fibrillation s/p ablation procedure on 04/19/[address] Hills and was just discharged from [facility] on 04/20/17. He states that after the procedure on 04/19/17 he was feeling great and his HR was controlled per the pt. He felt well following discharge yesterday. He states that he went out to eat after discharge and went home to put up his [employer] tree decorations. He denies doing any significant exertional activity or heavy lifting. Yesterday evening he ate some sausage and cheese and reports that he did have some heartburn/reflux after that. Then last night around 10:00PM he began having mild midsternal chest pain that seemed to gradually worsen through the night. He reports that at 1:30 AM he rolled over in bed and the pain became severe. The patient reports that the pain is sharp in character and 8 out of 10 in severity. He reports the pain is worse with taking a deep breath or coughing. He reports that yesterday he noted some increased sinus congestion and nonproductive cough. He has felt SOB but states that its because he can't take a deep breath due to the pain. He reports that the pain is on bilateral sides of his neck, the anterior chest, and shoulders. When the pain became severe he took 2 Percocet but the pain continued, therefore he decided to come to the emergency department for evaluation and treatment. Chest pain Possible Pneumonia - The patient on arrival the pt was tachypneic, hyperventilating. An ABG was done on arrival that shows a pH of 7.53, PCO2 30, PO2 19.5, consistent with hyperventilation. - EKG done on arrival showed a sinus rhythm heart rate of 80, ST elevation that appears to be early repolarization noted, this is similar in comparison to a prior EKG done at this facility. - Pt had a bedside ultrasound done in the ER, which per the ED physicians notes showed no significant pericardial effusion and normal wall motion was noted. - The patients labs were remarkable for WBC count 21.6, hemoglobin 15.4, platelets 219. - The patient was started on IV Rocephin 1 g IV, Zithromax IV. - Chest x-ray showed a patchy left lower lung infiltrate. - Continue IV Rocephin and Azithromycin - Duonebs Q4H WA and Q2H PRN - Pt was given a dose of Solu-Medrol in the ED as well. We will continue the Solu-Medrol overall today pt with less rhonci and wheezing. A. fib s/p recent ablation on 04/19/17 - The patient additionally reports that he had a cardiac catheterization to evaluate his coronary arteries by Dr. Torres of the [facility], approximately 2-3 weeks ago which showed normal coronary arteries per the pts report. - Cont. Eliquis and BB. - Cardiac enzymes were checked and noted CPK 166 --> 119, troponin I 2.64 -- > 2.05. - The ED physician discussed the case and elevated CE with who is covering for , and per her documentation it was felt that the elevated CE were likely secondary to the pts recent ablation, and he did not recommend any further intervention from a cardiac standpoint. 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 holding off nsaids given he is on anticoagulation. colchicine started by cardiology. will follow for sx improvement. Tobacco use - Pt is a chronic tobacco user - Nicotine patch -pt would like chantix script on d/c Chronic back pain - Pt s/p L2-L3, L3-L4 left hemilaminectomy and microdiscectomy on 12/01/[address] Tolliver - Pain control PRN (2) Pneumonia ICD Codes: J18.9 - Pneumonia, unspecified organism Status: Acute Plan: - See above (3) Atrial fibrillation ICD Codes: I48.91 - Unspecified atrial fibrillation Plan: - See above (4) History of radiofrequency ablation procedure for cardiac arrhythmia ICD Codes: Z98.890 - Other specified postprocedural states Status: Acute Plan: - See above (5) Back pain ICD Codes: M54.9 - Dorsalgia, unspecified Status: Chronic Plan: - See above (6) Tobacco abuse ICD Codes: Z72.0 - Tobacco use Status: Chronic Plan: - See above Problem Qualifiers (1) Chest pain: Qualified Codes: R07.1 - Chest pain on breathing (2) Pneumonia: Qualified Codes: J18.1 - Lobar pneumonia, unspecified organism (3) Atrial fibrillation: Qualified Codes: I48.0 - Paroxysmal atrial fibrillation Jaylen Painting MD Apr 22, 2017 08:55
[2017-04-22] MEDS: REMOVE OLD PATCH T-DERMAL SCH (09:00)
[2017-04-22] MEDS: COLCHICINE 0.6 MG TAB PO SCH ×2 (09:49→21:01)
[2017-04-22] MEDS: NICOTINE 14 MG/24 HR PATCH T-DERMAL SCH (09:50)
[2017-04-22] MEDS: METOPROLOL TARTRATE 50 MG TAB PO SCH ×2 (09:51→21:00)
[2017-04-22] MEDS: APIXABAN 5 MG TABLET PO SCH ×2 (09:51→21:00)
[2017-04-22] MEDS: PANTOPRAZOLE SOD 40 MG DELAYED RELEASE TAB PO SCH (09:51)
[2017-04-22] MEDS: APTIOM 800 MG PO SCH (09:52)
[2017-04-22] MEDS ORDERED: SODIUM CHLORIDE 0.65% NASAL SPRAY 45 ML BTL EACH NARE ONE (11:00)
[2017-04-22] MEDS ORDERED: SODIUM CHLORIDE 0.65% NASAL SPRAY 45 ML BTL EACH NARE PRN (11:00)
[2017-04-22] MEDS ORDERED: LORATADINE 10 MG TAB PO ONE (11:00)
[2017-04-22] MEDS: FLUTICASONE PROPIONATE 50 MCG/ACT 16 GM NASAL SPRAY NASAL SCH (12:00)
--- NOTE | 2017-04-22 23:15 | HHI.PR ---
Subjective Remarks Feeling better Objective Vital Signs Date Time Temp Pulse Resp B/P (MAP) Pulse Ox O2 Delivery O2 Flow Rate FiO2 04/22/17 22:25 98.6 93 18 149/87 (107) 100 04/22/17 19:33 93 21 04/22/17 18:06 20 04/22/17 18:00 92 04/22/17 17:00 94 04/22/17 16:00 85 04/22/17 16:00 97.8 96 18 154/95 (114) 93 04/22/17 15:00 88 04/22/17 14:00 80 04/22/17 13:11 95 Nasal Cannula 3.00 04/22/17 13:00 82 04/22/17 12:09 20 04/22/17 12:00 78 04/22/17 11:00 105 04/22/17 11:00 97.6 86 18 146/82 (103) 95 04/22/17 10:00 86 04/22/17 09:00 100 04/22/17 08:00 80 04/22/17 07:30 97.7 81 19 148/80 (102) 91 04/22/17 07:00 83 04/22/17 05:53 82 04/22/17 04:20 97.9 79 18 145/86 (105) 93 04/22/17 04:00 78 04/22/17 03:00 82 04/22/17 02:00 82 04/22/17 01:00 80 04/22/17 00:20 98.3 80 18 120/68 (85) 96 04/22/17 00:00 78 I/O 04/22/17 04/22/17 04/22/17 04/23/17 04/23/17 04/23/17 07:00 15:00 23:00 07:00 15:00 23:00 Intake Total 900 ml Output Total 975 ml Balance -75 ml Intake Oral 900 ml Output Urine Total 975 ml # Voids 4 # Bowel Movements 1 Result Diagram: 04/22/17 0604/22/17606 Imaging Alert, fully oriented Lungs: ventilated Heart: S1, S2 regular, no gallop Abdomen: soft, no mass Ext: no edema Last Impressions Chest X-Ray 04/22/17 06 Signed Impressions: Service Date/Time: April 06:19 - CONCLUSION: Interval development of infiltrates or atelectasis in the lower lungs bilaterally. Jonathan Pride MD Current Medications Medications (Trade) Dose Ordered Sig/Linda Route Start Time Stop Time Status Last Admin (NS Flush) 2 ml UNSCH PRN IVF 04/21/17 02:45 Azithromycin 500 mg/Sodium Chloride 250 ml @ 250 mls/hr Q24H IV 04/22/17 04:00 04/22/17 03:24 Ceftriaxone Sodium 1000 mg/ Sodium Chloride 100 ml @ 200 mls/hr Q24H IV 04/22/17 04:00 04/22/17 03:24 (Eliquis) 5 mg BID PO 04/21/17 09:00 04/22/17 21:00 (Lopressor) 50 mg BID PO 04/21/17 09:00 04/22/17 21:00 Patient Own Medication PT OWN MED: APT... DAILY PO 04/21/17 16:30 04/22/17 09:52 (Protonix) 40 mg DAILY PO 04/21/17 09:00 04/22/17 09:51 (Tylenol) 650 mg Q4H PRN PO 04/21/17 08:15 04/22/17 09:57 (Zofran Inj) 4 mg Q6H PRN IV 04/21/17 08:15 (Percocet 7.5-325 Mg) 1 tab Q4H PRN PO 04/21/17 08:30 04/22/17 17:34 (Duoneb Neb) 1 ampule Q2HR NEB PRN NEB 04/21/17 08:45 (Duoneb Neb) 1 ampule Q4HR WHILE AWAKE NEB NEB 04/21/17 12:00 04/22/17 19:31 (Habitrol 14 Mg Patch.24 Hr) 1 patch DAILY T-DERMAL 04/22/17 09:00 04/22/17 09:50 Miscellaneous Information 1 DAILY T-DERMAL 04/22/17 09:00 04/22/17 09:00 (SoluMEDROL INJ) 60 mg Q6H IV PUSH 04/21/17 14:00 04/22/17 21:01 (Dilaudid Pf Inj) 1 mg Q3H PRN IV 04/21/17 18:00 04/22/17 03:33 (Colchicine) 0.6 mg BID PO 04/21/17 21:00 04/22/17 21:01 (Claritin) 10 mg DAILY PO 04/23/17 09:00 (Flonase Maurice Spr) 2 spray DAILY NASAL 04/22/17 12:00 04/22/17 12:00 ([place] Maurice Moore) 2 spray Q4H PRN EACH NARE 04/22/17 11:00 04/22/17 17:34 Assessment and Plan Problem List: (1) Chest pain ICD Codes: R07.9 - Chest pain, unspecified Status: Acute Plan: Chest pain improves On colchicine doing better can be DH when ok with the managing team (2) Palpitations ICD Codes: R00.2 - Palpitations Plan: No tachy reported Problem Qualifiers (1) Chest pain: Qualified Codes: R07.1 - Chest pain on breathing Kaitlin Hills MD Apr 22, 2017 23:15
[2017-04-23] VITALS (9 sets, daily range): BP systolic 117–157; BP diastolic 91–93; PULSE 76–104; RESP 18; TEMP 98.6; O2SAT 94–100
[2017-04-23] MEDS: methylPREDNISolone SOD SUCC 125 MG/2 ML VIAL IV PUSH SCH ×2 (03:11→08:49)
[2017-04-23] MEDS: AZITHROMYCIN INJ 500 MG in SODIUM CHLOR 0.9% 250 ML INJ 250 ML IV SCH (03:11)
[2017-04-23] MEDS: cefTRIAXone INJ 1,000 MG in SODIUM CHLORIDE 0.9% INJ 100 ML IV SCH (03:11)
[2017-04-23] MEDS: RESP: ALBUTEROL 2.5 MG/IPRATROPIUM 0.5 MG NEB (SCH) NEB (07:58)
[2017-04-23] MEDS ORDERED: VARE1PAK3 PO (08:00)
[2017-04-23] MEDS ORDERED: LEVA500T33 PO (08:00)
[2017-04-23] MEDS ORDERED: PRED10 PO (08:00)
[2017-04-23] MEDS ORDERED: COLC0.6T PO (08:00)
--- NOTE | 2017-04-23 08:01 | HHI.DCPOC ---
Discharge Care Plan Diagnosis: (1) Pericarditis (2) Pneumonia (3) Atrial fibrillation (4) History of radiofrequency ablation procedure for cardiac arrhythmia Goals to Promote Your Health * To prevent worsening of your condition and complications * To maintain your health at the optimal level Directions to Meet Your Goals Take your medications as prescribed Follow your dietary instruction Follow activity as directed Keep your appointments as scheduled Take your immunizations and boosters as scheduled If your symptoms worsen call your PCP, if no PCP go to Urgent Care Center or Emergency Room Smoking is Dangerous to Your Health. Avoid second hand smoke Call the 24-hour hour crisis hotline for domestic abuse at Jaylen Painting MD Apr 23, 2017 08:01
[2017-04-23] MEDS ORDERED: VENTAER INH (08:05)
--- NOTE | 2017-04-23 08:08 | HHI.DS ---
Discharge Summary Admission Date Apr 21, 2017 at 04:36 Discharge Date: Apr 23, 2017 Admitting Diagnosis Pneumonia, post ablation (1) Pericarditis Diagnosis: Principal ICD Codes: I31.9 - Disease of pericardium, unspecified (2) Chest pain Diagnosis: Principal ICD Codes: R07.9 - Chest pain, unspecified Status: Acute (3) Pneumonia Diagnosis: Principal ICD Codes: J18.9 - Pneumonia, unspecified organism Status: Acute (4) Atrial fibrillation Diagnosis: Secondary ICD Codes: I48.91 - Unspecified atrial fibrillation (5) History of radiofrequency ablation procedure for cardiac arrhythmia Diagnosis: Secondary ICD Codes: Z98.890 - Other specified postprocedural states Status: Acute (6) Tobacco abuse Diagnosis: Secondary ICD Codes: Z72.0 - Tobacco use Status: Chronic Brief History Mr. Torres is a pleasant 51 y/o male with atrial fibrillation s/p ablation procedure on 04/19/[address] Hills and was just discharged from [facility] on . He states that after the procedure on 04/19/17 he was feeling great and his HR was controlled per the pt. He felt well following discharge yesterday. He states that he went out to eat after discharge and went home to put up his [employer] tree decorations. He denies doing any significant exertional activity or heavy lifting. Yesterday evening he ate some sausage and cheese and reports that he did have some heartburn/reflux after that. Then last night around 10: 00PM he began having mild midsternal chest pain that seemed to gradually worsen through the night. He reports that at 1:30 AM he rolled over in bed and the pain became severe. The patient reports that the pain is sharp in character and 8 out of 10 in severity. He reports the pain is worse with taking a deep breath or coughing. He reports that yesterday he noted some increased sinus congestion and nonproductive cough. He has felt SOB but states that its because he can't take a deep breath due to the pain. He reports that the pain is on bilateral sides of his neck, the anterior chest, and shoulders. When the pain became severe he took 2 Percocet but the pain continued, therefore he decided to come to the emergency department for evaluation and treatment. The patient on arrival the pt was tachypneic, hyperventilating. EKG done on arrival showed a sinus rhythm heart rate of 80, ST elevation that appears to be early repolarization noted, this is similar in comparison to a prior EKG done at this facility. Pt had a bedside ultrasound done in the ER, which per the ED physicians notes showed no significant pericardial effusion and normal wall motion was noted. The patient was given Hydromorphone 1 mg IV for pain which he states did provide him with significant relief of the pain. The patients labs were remarkable for WBC count 21.6, hemoglobin 15.4, platelets 219. The patient was started on IV Rocephin 1 g IV, Zithromax IV. Cardiac enzymes were checked and noted CPK 166, troponin I 2.64. An ABG was done on arrival that shows a pH of 7.53, PCO2 30, PO2 19.5, consistent with hyperventilation. Chest x-ray showed a patchy left lower lung infiltrate. The patient denies having any recent fevers. The patient denies having any abdominal pain, vomiting, diarrhea , urinary symptoms, or neurologic symptoms. The ED physician discussed the case and elevated CE with who is covering for , and per her documentation it was felt that the elevated CE were likely secondary to the pts recent ablation, and he did not recommend any further intervention from a cardiac standpoint. He recommended continuing on Eliquis and other cardiac medications that were prescribed by . The patient additionally reports that he had a cardiac catheterization to evaluate his coronary arteries by Dr. Torres of the [facility], approximately 2-3 weeks ago which showed normal coronary arteries per the pts report. The patient has been taking Eliquis for anticoagulation for about a week prior to his ablation procedure. CBC/BMP: 04/22/17 0607 04/22/17 0607 Significant Findings Laboratory Tests Test 04/21/17 02:40 04/21/17 03:55 04/21/17 05:59 04/22/17 06:07 White Blood Count 21.6 TH/MM3 (4.0-11.0) 22.9 TH/MM3 (4.0-11.0) Neutrophils # (Auto) 15.1 TH/MM3 (1.8-7.7) 19.8 TH/MM3 (1.8-7.7) Lymphocytes # (Auto) 5.0 TH/MM3 (1.0-4.8) Monocytes # (Auto) 1.3 TH/MM3 (0-0.9) 1.2 TH/MM3 (0-0.9) Blood Gas Base Excess 2.6 mmol/L (-2-2) Arterial Blood pH 7.53 (7.380-7.420) Arterial Blood Partial Pressure CO2 30 mmHg (38-42) Random Glucose 124 MG/DL (74-106) 221 MG/DL (74-106) Alkaline Phosphatase 200 U/L (45-117) Estimat Glomerular Filtration Rate 76 ML/MIN (>89) Creatine Kinase MB 8.5 NG/ML (0.5-3.6) 6.6 NG/ML (0.5-3.6) Troponin I 2.64 NG/ML (0.02-0.05) 2.05 NG/ML (0.02-0.05) Neutrophils (%) (Auto) 86.4 % (16.0-70.0) Lymphocytes (%) (Auto) 7.8 % (9.0-44.0) Hospital Course (1) Chest pain Patient is a 51 y/o male with atrial fibrillation s/p ablation procedure on with Dr. Hills and was just discharged from [facility] on 04/20/17. He states that after the procedure on 04/19/17 he was feeling great and his HR was controlled per the pt. He felt well following discharge yesterday. He states that he went out to eat after discharge and went home to put up his [employer] tree decorations. He denies doing any significant exertional activity or heavy lifting. Yesterday evening he ate some sausage and cheese and reports that he did have some heartburn/reflux after that. Then last night around 10:00PM he began having mild midsternal chest pain that seemed to gradually worsen through the night. He reports that at 1:30 AM he rolled over in bed and the pain became severe. The patient reports that the pain is sharp in character and 8 out of 10 in severity. He reports the pain is worse with taking a deep breath or coughing. He reports that yesterday he noted some increased sinus congestion and nonproductive cough. He has felt SOB but states that its because he can't take a deep breath due to the pain. He reports that the pain is on bilateral sides of his neck, the anterior chest, and shoulders. When the pain became severe he took 2 Percocet but the pain continued, therefore he decided to come to the emergency department for evaluation and treatment. Chest pain pneumonia pericarditis. post ablation - The patient on arrival the pt was tachypneic, hyperventilating. An ABG was done on arrival that shows a pH of 7.53, PCO2 30, PO2 19.5, consistent with hyperventilation. - EKG done on arrival showed a sinus rhythm heart rate of 80, ST elevation that appears to be early repolarization noted, this is similar in comparison to a prior EKG done at this facility. - Pt had a bedside ultrasound done in the ER, which per the ED physicians notes showed no significant pericardial effusion and normal wall motion was noted. - The patients labs were remarkable for WBC count 21.6, hemoglobin 15.4, platelets 219. - The patient was started on IV Rocephin 1 g IV, Zithromax IV. - Chest x-ray showed a patchy left lower lung infiltrate. - Continue IV Rocephin and Azithromycin - Duonebs Q4H WA and Q2H PRN - Pt was given a dose of Solu-Medrol in the ED as well. We will continue the Solu-Medrol continues to improve. no cp today. eager for d/c. will cont prednisone taper. albuterol mdi and complete abx course. will cont colchicine and stop when ok with cardiology. f/u 1 week. script written for chantix to stop smoking. on morning of d/c...pt says had alot of diarrhea...he doesn't want to stay for c.diff testing. his in nurse. they will go to pcp and get c.diff pcr if persistent. if neg then ok for immodium as likely colchicine the culprit. if persistent then call cardiology to discuss alternate therapy. A. fib s/p recent ablation on 04/19/17 - The patient additionally reports that he had a cardiac catheterization to evaluate his coronary arteries by Dr. Torres of the [facility], approximately 2-3 weeks ago which showed normal coronary arteries per the pts report. - Cont. Eliquis and BB. - Cardiac enzymes were checked and noted CPK 166 --> 119, troponin I 2.64 -- > 2.05. - The ED physician discussed the case and elevated CE with who is covering for , and per her documentation it was felt that the elevated CE were likely secondary to the pts recent ablation, and he did not recommend any further intervention from a cardiac standpoint. 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 holding off nsaids given he is on anticoagulation. colchicine started by cardiology. sx's improved. Tobacco use - Pt is a chronic tobacco user - Nicotine patch -pt would like chantix script on d/c Chronic back pain - Pt s/p L2-L3, L3-L4 left hemilaminectomy and microdiscectomy on 12/01/[address] Tolliver - Pain control PRN (2) Pneumonia ICD Codes: J18.9 - Pneumonia, unspecified organism Status: Acute Plan: - See above (3) Atrial fibrillation ICD Codes: I48.91 - Unspecified atrial fibrillation Plan: - See above (4) History of radiofrequency ablation procedure for cardiac arrhythmia ICD Codes: Z98.890 - Other specified postprocedural states Status: Acute Plan: - See above (5) Back pain ICD Codes: M54.9 - Dorsalgia, unspecified Status: Chronic Plan: - See above (6) Tobacco abuse ICD Codes: Z72.0 - Tobacco use Status: Chronic Plan: - See above Pt Condition on Discharge: Stable Discharge Disposition: Discharge Home Discharge Instructions DIET: Follow Instructions for: Heart Healthy Diet Activities you can perform: Regular-No Restrictions Follow up Referrals: Cardiology - 1 Week with Kaitlin Hills MD PCP Follow-up - [address] de la torre New Medications: Albuterol 18 GM Inh (Ventolin Hfa 18 GM Inh) 90 Mcg/Act Aer 2 PUFF INH Q4H PRN for SHORTNESS OF BREATH, #1 INHALER 0 Refills Levofloxacin (Levaquin) 500 Mg Tablet 500 MG PO DAILY for Infection for 7 Days, #7 TAB 0 Refills Prednisone (Prednisone) 10 Mg Tab 10 MG PO DIRECTED for Inflammation for 10 Days, TAB 0 Refills 20mg po bid x 3 days, 10mg po bid x 3 days, 10mg po daily x 4 days Varenicline (Chantix Starting Month Terell) 0.5 mg X 11 & 1 mg X 42 Pack 1 TAB PO DIRECTED for Smoking cessation, #1 PKT 0 Refills Colchicine (Colcrys) 0.6 Mg Tab 0.6 MG PO BID for pericarditis for 30 Days, #60 TAB Continued Medications: Apixaban (Eliquis) 5 Mg Tab 5 MG PO BID for Blood Clot Prevention, #60 TAB 0 Refills Eslicarbazepine (Aptiom) 800 Mg Tab 800 MG PO DAILY for Control Seizures, #30 TAB 0 Refills Metoprolol Tartrate (Metoprolol Tartrate) 50 Mg Tab 50 MG PO BID, #60 TAB 0 Refills Omeprazole (Omeprazole) 40 Mg Cap 40 MG PO DAILY, #30 CAP 0 Refills Discontinued Medications: Naproxen Sodium (Aleve Arthritis) 220 Mg Tab 220 MG PO BID, TAB Jaylen Painting MD Apr 23, 2017 08:08
[2017-04-23] MEDS ORDERED: NORC5TAB PO (08:09)
[2017-04-23] MEDS: METOPROLOL TARTRATE 50 MG TAB PO SCH (08:49)
[2017-04-23] MEDS: FLUTICASONE PROPIONATE 50 MCG/ACT 16 GM NASAL SPRAY NASAL SCH (08:49)
[2017-04-23] MEDS: COLCHICINE 0.6 MG TAB PO SCH (08:50)
[2017-04-23] MEDS: PANTOPRAZOLE SOD 40 MG DELAYED RELEASE TAB PO SCH (08:50)
[2017-04-23] MEDS: APIXABAN 5 MG TABLET PO SCH (08:50)
[2017-04-23] MEDS ORDERED: FLUTICASONE PROPIONATE 50 MCG/ACT 16 GM NASAL SPRAY EACH NARE SCH (09:00)
[2017-04-23] MEDS ORDERED: LORATADINE 10 MG TAB PO SCH (09:00)
[2017-04-23] MEDS: REMOVE OLD PATCH T-DERMAL SCH (09:00)
[2017-04-23] MEDS: APTIOM 800 MG PO SCH (09:14)
[2017-04-23] MEDS: NICOTINE 14 MG/24 HR PATCH T-DERMAL SCH (09:16)
== END 2017-04-23 09:34 | disposition home or self-care (01) | DRG 273 ==
LOC: NEPC 02:17 → NEDA 04:36 → HCIS 14:02
PROVIDERS: ADMIT Hospitalist; ATTEND Hospitalist
PROC: 02583ZZ Destruction of Conduction Mechanism, Percutaneous Approach (ICD-10-PCS; principal; 2017-04-19)
PROC: 02K83ZZ Map Conduction Mechanism, Percutaneous Approach (ICD-10-PCS; 2017-04-19)
PROC: 4A023FZ Measurement of Cardiac Rhythm, Percutaneous Approach (ICD-10-PCS; 2017-04-19)
DX: I31.9 Disease of pericardium, unspecified (principal); J18.9 Pneumonia, unspecified organism; G40.209 Localization-related (focal) (partial) symptomatic epilepsy and epileptic syndromes with complex partial seizures, not intractable, without status epilepticus; I48.92 Unspecified atrial flutter; I10 Essential (primary) hypertension; I48.2 Chronic atrial fibrillation; F17.210 Nicotine dependence, cigarettes, uncomplicated; R06.4 Hyperventilation; G89.29 Other chronic pain; M54.5 Low back pain; K21.9 Gastro-esophageal reflux disease without esophagitis; R06.00 Dyspnea, unspecified; G43.909 Migraine, unspecified, not intractable, without status migrainosus; R19.7 Diarrhea, unspecified; Z79.01 Long term (current) use of anticoagulants
CPT/HCPCS: 36600; 71010; 71020; 80048; 80053; 82550; 82552; 82805; 83605; 83735; 83880; 84484; 85002; 85025; 85610; 85652; 85730; 86850; 86900; 86901; 87040; 93005; 93312; 93320; 93325; 93613; 93623; 93656; 93662; 94150; 94640; 94664; 96365; 96375; C1730; C1731; C1732; C1759; C1766; C2630; J0456; J0696; J1170; J1644; J1956; J2405; J2720; J2930; J7050

== ENCOUNTER 2017-05-05 18:30 | Emergency (ER) | payer OTHER ==
[~2017-05-05 18:30] MED LIST changes: -ALEV220T14 PO; +COLC0.6T PO; +LEVA500T33 PO; +NORC5TAB PO; +PRED10 PO; +VARE1PAK3 PO; +VENTAER INH
[2017-05-05 18:41] VITALS: BP 169/83; PULSE 76; RESP 28; TEMP 98; O2SAT 97
[2017-05-05] MEDS ORDERED: SODIUM CHLORIDE 0.9% FLUSH 10 ML FLUSH IVF PRN (19:15)
[2017-05-05 19:32] VITALS: BP 131/81; PULSE 68; RESP 18; O2SAT 96
[2017-05-05 20:10] LABS: AUTOMATED NEUTROPHIL # 9.9 TH/MM3 (1.8-7.7); BASOPHIL # 0.1 TH/MM3 (0-0.2); BASOPHIL % 0.5 % (0.0-2.0); EOSINOPHIL # 0.2 TH/MM3 (0-0.4); EOSINOPHIL % 1.4 % (0.0-4.0); HEMOGLOBIN 16.7 GM/DL (13.0-17.0); LYMPH % 30.8 % (9.0-44.0); MEAN CORPUSCULAR HEMOGLOBIN 32.6 PG (27.0-34.0); MEAN CORPUSCULAR HGB CONC 34.7 % (32.0-36.0); MONO % 6.7 % (0.0-8.0); MONOCYTE # 1.1 TH/MM3 (0-0.9); NEUT % 60.6 % (16.0-70.0); PLATELET COUNT 223 TH/MM3 (150-450); RED CELL DISTRIBUTION WIDTH 13.3 % (11.6-17.2); WHITE BLOOD COUNT 16.3 TH/MM3 (4.0-11.0)
[2017-05-05 20:22] LABS: ALT (GPT) 55 U/L (12-78)
[2017-05-05 20:27] LABS: ALKALINE PHOSPHATASE 186 U/L (45-117); TOTAL BILIRUBIN ADULT 0.3 MG/DL (0.2-1.0); TOTAL PROTEIN 6.9 GM/DL (6.4-8.2); TROPONIN I LESS THAN 0.02 NG/ML (0.02-0.05)
[2017-05-05 20:31] LABS: ALBUMIN 3.6 GM/DL (3.4-5.0); AST (GOT) 22 U/L (15-37); BICARBONATE 22.5 MEQ/L (21.0-32.0); BLOOD UREA NITROGEN 14 MG/DL (7-18); CHLORIDE 105 MEQ/L (98-107); CREATININE 0.83 MG/DL (0.60-1.30); GLOMERULAR FILTRATION RATE 97 ML/MIN (>89); GLUCOSE,RANDOM 107 MG/DL (74-106); LIPASE 105 U/L (73-393); MAGNESIUM 1.7 MG/DL (1.5-2.5); SODIUM (NA) 137 MEQ/L (136-145)
--- NOTE | 2017-05-05 20:37 | RADRPT ---
EXAM DATE/TIME: 05/05/2017 19:46 [place] COMPARISON: CHEST SINGLE AP, April 21, 2017, 2:49. INDICATIONS : Chest pain today. MEDICAL HISTORY : Epilespy. Arrythmias. SURGICAL HISTORY : None. ENCOUNTER: Initial ACUITY: 1 day PAIN SCORE: 6/10 LOCATION: Bilateral chest FINDINGS: Improved bilateral lower lung zone patchy airspace disease. No new focal pleural or parenchymal opaci ties. Cardiomediastinal contours are stable. Remainder of exam is unchanged. CONCLUSION: 1. Improved bilateral lower lung zone patchy airspace disease. 2. Otherwise, no acute abnormality or significant change. Benito Meier MD on May 05, 2017 at 20:35 Board Certified Radiologist. This report was verified electronically.
--- NOTE | 2017-05-05 22:02 | PD ---
HPI Chief Complaint: Chest Pain Time Seen by Provider: 19:01 Travel History International Travel<30 days: No Contact w/Intl Traveler<30days: No Traveled to known affect area: No History of Present Illness HPI Is a 51-year-old man who presents to the emergency department complaining of chest tightness and shortness of breath started about 30 minutes ago. Patient is a history of A. fib and flutter and had an ablation done at the beginning of April by Dr. Diaz, and was admitted to the hospital recently with pericarditis and pneumonia. He is on colchicine and steroids. States she was doing well with possible days until today when he developed this chest pain about 30 minutes ago. His some shortness of breath with it. No other associated symptoms. He has had some cough cold symptoms or past week but feels like he is improving from that. No other complaints. History Past Medical History Narrative Medical A. fib/flutter Seizure GERD Chronic back pain Chronic tobacco use Tetanus Vaccination: > 5 Years Social History Alcohol Use: No Tobacco Use: Yes (1 ppd) Allergies-Medications (Allergen,Severity, Reaction): Coded Allergies: meperidine (Unverified Allergy, Severe, PASSED OUT, 12/22/16) ergotamine (Verified Allergy, Unknown, Nausea/Vomiting, 04/19/17) Reported Meds & Prescriptions Reported Meds & Active Scripts Active [place] (Hydrocodone-Acetaminophen) 5 Mg-325 Mg Tab 1 Tab PO Q4H PRN Ventolin Hfa 18 GM Inh (Albuterol Sulfate) 90 Mcg/Act Aer 2 Puff INH Q4H PRN Prednisone 10 Mg Tab 10 Mg PO DIRECTED 10 Days 20mg po bid x 3 days, 10mg po bid x 3 days, 10mg po daily x 4 days Levaquin (Levofloxacin) 500 Mg Tablet 500 Mg PO DAILY 7 Days Colcrys (Colchicine) 0.6 Mg Tab 0.6 Mg PO BID 30 Days Chantix Starting Month Terell (Varenicline) 0.5 mg X 11 & 1 mg X 42 Pack 1 Tab PO DIRECTED Reported Eliquis (Apixaban) 5 Mg Tab 5 Mg PO BID Omeprazole 40 Mg Cap 40 Mg PO DAILY Aptiom (Eslicarbazepine) 800 Mg Tab 800 Mg PO DAILY Metoprolol Tartrate 50 Mg Tab 50 Mg PO BID Review of Systems Except as stated in HPI: all other systems reviewed are Neg Physical Exam Narrative GENERAL: Well-appearing 50-year-old man, no acute distress. SKIN: Focused skin assessment warm/dry. HEAD: Atraumatic. Normocephalic. EYES: Pupils equal and round. No scleral icterus. No injection or drainage. ENT: No nasal bleeding or discharge. Mucous membranes pink and moist. NECK: Trachea midline. No JVD. CARDIOVASCULAR: Regular rate and rhythm. No murmur appreciated. RESPIRATORY: No accessory muscle use. Clear to auscultation. Breath sounds equal bilaterally. GASTROINTESTINAL: Abdomen soft, non-tender, nondistended. Hepatic and splenic margins not palpable. MUSCULOSKELETAL: No obvious deformities. No clubbing. No cyanosis. No edema. NEUROLOGICAL: Awake and alert. No obvious cranial nerve deficits. Motor grossly within normal limits. Normal speech. PSYCHIATRIC: Appropriate mood and affect; insight and judgment normal. Data Data Last Documented VS Vital Signs Date Time Temp Pulse Resp B/P (MAP) Pulse Ox O2 Delivery O2 Flow Rate FiO2 05/05/17 19:32 96 Room Air 05/05/17 19:32 05/05/17 19:32 68 18 05/05/17 18:41 98.0 Orders Orders Electrocardiogram (05/05/17 19:08) Complete Blood Count With Diff (05/05/17 19:08) Comprehensive Metabolic Panel (05/05/17 19:08) Magnesium (Mg) (05/05/17 19:08) Prothrombin Time / Inr (Pt) (05/05/17 19:08) Act Partial Throm Time (Ptt) (05/05/17 19:08) Troponin I (05/05/17 19:08) Lipase (05/05/17 19:08) Chest, Single Ap (05/05/17 19:08) Ecg Monitoring (05/05/17 19:08) Iv Access Insert/Monitor (05/05/17 19:08) Oximetry (05/05/17 19:08) Oxygen Administration (05/05/17 19:08) Sodium Chloride 0.9% Flush (Ns Flush) (05/05/17 19:15) Ed Poc Ultrasound (05/05/17 19:08) Electrocardiogram (05/05/17 20:03) Labs Laboratory Tests Test 05/05/17 19:20 White Blood Count 16.3 TH/MM3 Red Blood Count 5.10 MIL/MM3 Hemoglobin 16.7 GM/DL Hematocrit 48.0 % Mean Corpuscular Volume 94.0 FL Mean Corpuscular Hemoglobin 32.6 PG Mean Corpuscular Hemoglobin Concent 34.7 % Red Cell Distribution Width 13.3 % Platelet Count 223 TH/MM3 Mean Platelet Volume 9.0 FL Neutrophils (%) (Auto) 60.6 % Lymphocytes (%) (Auto) 30.8 % Monocytes (%) (Auto) 6.7 % Eosinophils (%) (Auto) 1.4 % Basophils (%) (Auto) 0.5 % Neutrophils # (Auto) 9.9 TH/MM3 Lymphocytes # (Auto) 5.0 TH/MM3 Monocytes # (Auto) 1.1 TH/MM3 Eosinophils # (Auto) 0.2 TH/MM3 Basophils # (Auto) 0.1 TH/MM3 CBC Comment DIFF FINAL Differential Comment Prothrombin Time 10.0 SEC Prothromb Time International Ratio 1.0 RATIO Activated Partial Thromboplast Time 27.7 SEC Blood Urea Nitrogen 14 MG/DL Creatinine 0.83 MG/DL Random Glucose 107 MG/DL Total Protein 6.9 GM/DL Albumin 3.6 GM/DL Calcium Level 9.0 MG/DL Magnesium Level 1.7 MG/DL Alkaline Phosphatase 186 U/L Aspartate Amino Transf (AST/SGOT) 22 U/L Alanine Aminotransferase (ALT/SGPT) 55 U/L Total Bilirubin 0.3 MG/DL Sodium Level 137 MEQ/L Potassium Level 3.7 MEQ/L Chloride Level 105 MEQ/L Carbon Dioxide Level 22.5 MEQ/L Anion Gap 10 MEQ/L Estimat Glomerular Filtration Rate 97 ML/MIN Troponin I LESS THAN 0.02 NG/ML Lipase 105 U/L [facility] Medical Decision Making Medical Screen Exam Complete: Yes Emergency Medical Condition: Yes Interpretation(s) My review of EKG: Normal sinus rhythm at a rate of 63, normal axis, normal intervals, no acute ischemia. LABS: CBC remarkable for mild leukocytosis. CMP is unremarkable. Troponins negative. Lipase is normal. Chest x-ray negative. Differential Diagnosis Pericarditis, pericardial effusion, ACS, PE, gastritis, other Narrative Course Medical decision-making new para 50-year-old man with recent diagnosis of pericarditis, severe pain, ongoing today. Looks well. Bedside ultrasound show any Not or pericardial effusion. Repeat workups unremarkable. Recommend continue supportive treatment. Diagnosis Primary Impression: Chest pain Additional Instructions: Continue current medications. Use Tylenol in addition to current medications as needed for pain. Return to the emergency department for any worsening chest pain, trouble breathing, or any other new or worsening symptoms. Med/Other Pt SpecificInfo: No Change to Meds Disposition: 01 DISCHARGE HOME Condition: Stable Booker Alfonso MD May 05, 2017 22:02
--- NOTE | 2017-05-06 23:02 | EKG ---
Date Performed: 05/05/2017 Time Performed: 20:03:10 PTAGE: 51 years EKG: Sinus rhythm NORMAL ECG PREVIOUS TRACING : 05/05/2017 18.24 Compared to prior tracing no significant change DOCTOR: Chepe Costa Interpretating Date/Time 05/06/2017 23:02:18
--- NOTE | 2017-05-06 23:08 | EKG ---
Date Performed: 05/05/2017 Time Performed: 18:24:11 PTAGE: 51 years EKG: Sinus rhythm NORMAL ECG INTERPRETATION BASED ON A DEFAULT AGE OF 40 YEARS PREVIOUS TRACING : 11/03/2016 14.31 Compared to prior tracing no significant change DOCTOR: Chepe Costa Interpretating Date/Time 05/06/2017 23:07:02
[2017-05-20] MEDS ORDERED: COLC1CAP3 PO (16:04)
[2017-05-20] MEDS ORDERED: APIX5TAB PO (16:04)
== END 2017-05-05 22:52 | disposition home or self-care (01) ==
LOC: NEPC 18:30
DX: R07.9 Chest pain, unspecified (principal); F17.200 Nicotine dependence, unspecified, uncomplicated; Z79.899 Other long term (current) drug therapy
CPT/HCPCS: 71010; 80053; 83690; 83735; 84484; 85025; 85610; 85730; 93005; 99285